=== PATIENT | male | born 1960 | race African-American/Black ===

== ENCOUNTER 2018-10-10 09:56 | Emergency (ER) | payer BC ==
--- OUTSIDE RECORDS SUMMARY | 2018-10-10 09:58 | XMS REPORT | Clinical Summary ---
:1960 Author Organization [facility] Address [address] [place] [address] Care Team Providers Name Role Phone Joanna Blank DO Primary Care Provider Allergies Active Allergy Reactions Severity Noted Date Comments No Known Drug Allergies 03/24/2016 Medications Medication Sig Dispensed Refills Start Date End Date Status carvedilol (COREG) Take 1 tablet 180 tablet 3 09/01/2017 Active 25 MG tablet (25 mg total) by mouth 2 (two) times a day with meals. aspirin (ECOTRIN) Take 1 tablet 90 tablet 3 09/01/2017 Active 81 MG enteric every day by coated tablet oral route. furosemide (LASIX) Take 1 tablet 90 tablet 3 08/31/2018 08/31/2019 Active 40 mg tablet (40 mg total) by mouth daily. lisinopril TAKE ONE 90 tablet 2 09/06/2018 Active (PRINIVIL,ZESTRIL) TABLET BY 5 mg tablet MOUTH DAILY lisinopril Take 1 tablet 90 tablet 3 09/01/2017 09/04/2018 Discontinued (PRINIVIL,ZESTRIL) (5 mg total) 5 mg tablet by mouth daily. furosemide (LASIX) Take 1 tablet 90 tablet 3 09/01/2017 08/31/2018 Discontinued 40 mg tablet (40 mg total) by mouth daily. Active Problems Problem Noted Date LBBB (left bundle branch block) 11/11/2016 Cardiomegaly 03/24/2016 Cardiomyopathy 03/24/2016 Hyperlipidemia 03/24/2016 Hypertension 03/24/2016 Sleep apnea 03/24/2016 Encounters Date Type Specialty Care Team Description 09/04/2018 Refill Cardiology Heron Franco, Med Refill 08/31/2018 Office Visit Cardiology Heron Franco, Cardiomyopathy, unspecified type (HCC) (Primary Dx); Essential hypertension 08/25/2018 Hospital Encounter Radiology Alcon Gonzales Right knee pain, unspecified chronicity; MD Kris Left knee pain, unspecified chronicity 08/25/2018 Transcribe Orders Radiology Alcon Gonzales Right knee pain, unspecified chronicity (Primary Dx); MD Kris Left knee pain, unspecified chronicity 03/02/2018 Office Visit Cardiology Heron Franco, LBBB (left bundle branch block) (Primary Dx); Dilated cardiomyopathy (HCC) 11/11/2017 Telephone Cardiology Clark Kennedy MA Results (Echo results) after 10/09/2017 Family History Relation Name Status Comments Father Mother Social History Tobacco Use Types Packs/Day Years Used Date Former Smoker Smokeless Tobacco: Former User Sex Assigned at Date Recorded Not on file Job Start Date Occupation Industry Not on file Not on file Not on file Travel History Travel Start Travel End No recent travel history available. Last Filed Vital Signs Vital Sign Reading Time Taken Blood Pressure 122/74 08/31/2018 8:52 AM CDT Pulse 77 08/31/2018 8:52 AM CDT Temperature - - Respiratory Rate - - Oxygen Saturation - - Inhaled Oxygen Concentration - - Weight 100 kg (221 lb) 08/31/2018 8:52 AM CDT Height 190.5 cm (6' 3") 08/31/2018 8:52 AM CDT Body Mass Index 27.62 08/31/2018 8:52 AM CDT Plan of Treatment Date Type Specialty Care Team Description 02/21/2019 Appointment Procedural Cardiology 03/01/2019 Office Visit Cardiology Heron Franco MD [address] [facility] [address] [place] [id number] Health Maintenance Due Date Last Done Comments COLON CANCER SCREENING 2009 SHINGLES VACCINES (#1) 2009 INFLUENZA VACCINE 12/30/2018 Procedures Procedure Name Priority Date/Time Associated Comments Diagnosis XR KNEE 4+ VW BILATERAL Routine 08/25/2018 11:30 Right knee pain, Results for this AM CDT unspecified procedure are in chronicity the results Left knee pain, section. unspecified chronicity ECHOCARDIOGRAM 2D Routine 10/30/2017 10:32 Abnormal ECG Results for this COMPLETE W MMODE AM CDT Cardiomyopathy, procedure are in SPECTRAL COLOR DOPPLER unspecified type the results (88300) section. after 10/09/2017 Results XR Knee 4+ Vw Bilateral (08/25/2018 11:30 AM CDT) Narrative Performed At EXAMINATION:XR KNEE 4VW BILATERAL [facility] CLINICAL HISTORY:M25.561 Pain in right knee, M25.562 Pain in left knee, m25.561 & m25.562 COMPARISON:None. FINDINGS: Or view examination of each knee performed. Severe medial and lateral joint space narrowing about the right knee. Bulky osteophytic changes about the right knee most marked medially. Severe degenerative changes at the proximal tibial fibular articulation on the right. Severe degenerative patellofemoral change on the right No fracture or dislocation on the right. No right-sided effusion Moderate joint space narrowing medial compartment left. Moderate osteophytic change about the lateral joint line on the left. Moderate patellofemoral joint space narrowing left. No fracture dislocation or effusion on the left IMPRESSION: Severe diffuse degenerative changes right knee. Moderate diffuse degenerative changes left knee No fracture or dislocation No effusion [id number] Procedure Note Hm Interface, Radiology Results Incoming - 08/25/2018 12:51 PM CDT EXAMINATION: XR KNEE 4 VW BILATERAL CLINICAL HISTORY: M25.561 Pain in right knee, M25.562 Pain in left knee, m25.561 & m25.562 COMPARISON: None. FINDINGS: Or view examination of each knee performed. Severe medial and lateral joint space narrowing about the right knee. Bulky osteophytic changes about the right knee most marked medially. Severe degenerative changes at the proximal tibial fibular articulation on the right. Severe degenerative patellofemoral change on the right No fracture or dislocation on the right. No right-sided effusion Moderate joint space narrowing medial compartment left. Moderate osteophytic change about the lateral joint line on the left. Moderate patellofemoral joint space narrowing left. No fracture dislocation or effusion on the left IMPRESSION: Severe diffuse degenerative changes right knee. Moderate diffuse degenerative changes left knee No fracture or dislocation No effusion [id number] Performing Organization Address City/State/Zipcode Phone Number [facility] [address] [place] [address] Echocardiogram complete w contrast and 3D if needed (10/30/2017 10:32 AM CDT) Narrative Performed At [facility] Echocardiography Report Pat.Name:ALPHONSO VILLAGOMEZ Pat.ID:[id number] .Date: 10/30/2017Refer.MD:HERON FRANCO MD Exam Time: 11:04:00 AM Study Type:Routine Echo Height:76inWeight: 223lb BSA: 2.32 m2 DOBAge:1960,57Y Sex: MALEBP:131/87 HR:80 bpm Sonogrphr: OG Khoury FASE Pat. Stat.:OutpatientRoom:[facility] Study Status:Final Echo Event ID:[id number] Order ID:[id number] Reason for Study:Cardiomyopathy with no status change -routine (>1yr) Procedures:2D Echo, Colorflow Doppler Race:C SUMMARY: LV size is severely enlarged. Suggestion of apical non-compaction. Estimated EF is 30-34%. LV filling pressure is elevated, mean PCWP is 15-20mmHg. Insufficient TR jet to estimate PA systolic pressure. FINDINGS: LV: LV size is severely enlarged. Suggestion of apical non-compaction.An LV tendon is seen. This is a normal variant.LV EF is moderately to severely depressed. Global hypokinesis.Estimated EF is 30-34%. RV: RV size is normal. RV systolic function is normal. LA: LA volume is moderately enlarged. RA: RA size is normal. AO: Aortic root diameter is upper limits of normal in size. LINUS: No pericardial effusion. AV: No structural AV abnormalities noted. MV: No structural MV abnormalities noted. A trace of mitral regurgitation. PV: No structural PV abnormalities noted. TV: No structural TV abnormalities noted. Hussein: LV relaxation is impaired. LV filling pressure is elevated, meanPCWP is 15-20mmHg. Other:Insufficient TR jet to estimate PA systolic pressure. MEASUREMENTS: 2D Parasternal [place] LVIDd6.9 cmIndex3 cm/m Ao An2.6 cm LVIDs5.4 cmAo Rtd 3.7 cm Index1.6 cm/m LV%fs 21.2 % LV Qoqx834.4 g(122-174) IVSd 1.1 cmRWT0.3 LVPWd1.1 cmLVOT 2.4 cm LA Ds4.7 cm LA Sng Plane LA Area 26.5 cm2(8.8-23.4) LA Vol97.3 ml Index42 ml/m LA LngAx 6.1 cm DOPPLER LVOT For Flow LVOT Area4.5 cm2 LVOT SV105.8 ml VPSQzuOaz231 cm/sHR78.5 bpm LVOTpkPG 8.3 mmHgLVOT CO8.3 l/min LVOTmnPG 4.2 mmHgLVOT CI3.6 l/m/m2 LVOT TVI23.4 cm lateral late Em5.9 cm/s lateral E/A Ratio late pkE86.1 cm/slate E/A 1.3 late pkA64.2 cm/s Signed 11/02/2017 03:22 PM Hua Anderson M.D. Procedure Note Interface, Radiology Results In - 11/02/2017 3:22 PM CDT [facility] Echocardiography Report Pat.Name: ALPHONSO VILLAGOMEZ Jimena.ID: [id number] St.Date: 10/30/2017 Refer.MD: HERON FRANCO MD Exam Time: 11:04:00 AM Study Type:Routine Echo Height: 76in Weight: 223lb BSA: 2.32 m2 Age: 9 1960,57Y Sex: MALE BP: 131/87 HR: 80 bpm Sonogrphr: OG Khoury FASE Pat. Stat.:Outpatient Room: [facility] Study Status:Final Echo Event ID:[id number] Order ID: [id number] Reason for Study:Cardiomyopathy with no status change -routine (>1yr) Procedures:2D Echo, Colorflow Doppler Race: C SUMMARY: LV size is severely enlarged. Suggestion of apical non-compaction. Estimated EF is 30-34%. LV filling pressure is elevated, mean PCWP is 15-20mmHg. Insufficient TR jet to estimate PA systolic pressure. FINDINGS: LV: LV size is severely enlarged. Suggestion of apical non-compaction. An LV tendon is seen. This is a normal variant. LV EF is moderately to severely depressed. Global hypokinesis. Estimated EF is 30-34%. RV: RV size is normal. RV systolic function is normal. LA: LA volume is moderately enlarged. RA: RA size is normal. AO: Aortic root diameter is upper limits of normal in size. LINUS: No pericardial effusion. AV: No structural AV abnormalities noted. MV: No structural MV abnormalities noted. A trace of mitral regurgitation. PV: No structural PV abnormalities noted. TV: No structural TV abnormalities noted. Hussein: LV relaxation is impaired. LV filling pressure is elevated, mean PCWP is 15-20mmHg. Other: Insufficient TR jet to estimate PA systolic pressure. MEASUREMENTS: 2D Parasternal [place] LVIDd 6.9 cm Index 3 cm/m Ao An 2.6 cm LVIDs 5.4 cm Ao Rtd 3.7 cm Index 1.6 cm/m LV%fs 21.2 % LV Mass 348.4 g (122-174) IVSd 1.1 cm RWT 0.3 LVPWd 1.1 cm LVOT 2.4 cm LA Ds 4.7 cm LA Sng Plane LA Area 26.5 cm2 (8.8-23.4) LA Vol 97.3 ml Index 42 ml/m LA LngAx 6.1 cm DOPPLER LVOT For Flow LVOT Area 4.5 cm2 LVOT SV 105.8 ml LVOTpkVel 144 cm/s HR 78.5 bpm LVOTpkPG 8.3 mmHg LVOT CO 8.3 l/min LVOTmnPG 4.2 mmHg LVOT CI 3.6 l/m/m2 LVOT TVI 23.4 cm lateral late Em 5.9 cm/s lateral E/A Ratio late pkE 86.1 cm/s late E/A 1.3 late pkA 64.2 cm/s Signed 11/02/2017 03:22 PM Hua Anderson M.D. Performing Organization Address City/State/[facility] Service Unitcode Phone Number [facility] [phone] [place] [address] after 10/09/2017 Insurance Payer Benefit Plan / Group Subscriber ID Type Phone Address BCBS BCBS CHOICE PPO/FEDERAL EMPL PPO xxxxxxxxxxxx PPO Advance Directives Patient has advance care planning documents on file. For more information, please contact:[facility] [place] [address]
--- OUTSIDE RECORDS SUMMARY | 2018-10-10 10:00 | XMS REPORT | Continuity of Care Document ---
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 Dilated 11/12/2017 [facility] cardiomyopathy 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/12/2017 [facility] plasma-protein metabolism, not elsewhere classified Hypertensive heart 11/12/2017 [facility] disease with heart failure 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 Obesity, 11/12/2017 [facility] unspecified Left bundle-branch 11/12/2017 [facility] block, unspecified Body mass index 11/12/2017 [facility] 29.0-29.9, adult HEART FAILURE, Active [facility] UNSPECIFIED [place] UNSPECIFIED ATRIAL Active [facility] FIB[facility] [place] Medications Medication Details Route Status Patient Ordering Order Source Instructions Provider Date carvedilol 25 25 mg=1 tab, PO, Active mg oral Q12H, # 60 tab, 0 2017 [place] tablet Refill(s) Aspirin 81 MG 81 mg=1 tab, PO, Active Enteric Daily, 0 2017 [place] Coated Tablet Refill(s) rivaroxaban 20 mg=1 tab, PO, Active 20 mg oral QPM, # 30 tab, 0 2017 [place] tablet Refill(s) lisinopril 5 5 mg=1 tab, PO, Active mg oral Bedtime, # 30 2018 [place] tablet tab, 0 Refill(s) Furosemide 40 40 mg=1 tab, PO, Active MG Oral BID, # 60 tab, 0 2017 [place] Tablet Refill(s) [Lasix] Lisinopril 2.5 mg, 0.5 tab, No Longer Route: PO, Drug Active 2017 [place] form: TAB, Bedtime, Dosing Weight 106.818, kg, Priority: Routine, Start date: 08/05/17 21:00:00 [employer], Duration: 30 day, Stop date: 09/03/17 21:00:00 CDTNotes: (Same as: Prinivil, Zestril) Xarelto 20 mg, 2 tab, No Longer Route: PO, Drug Active 2017 [place] form: TAB, QPM, Dosing Weight 106.818, kg, Priority: Routine, Start date: 08/05/17 17:00:00 [employer], Duration: 30 day, Stop date: 09/03/17 17:00:00 CDTNotes: (Same as: Xarelto) Do Not Crush Coreg 25 mg, 2 tab, No Longer Route: PO, Drug Active 2017 [place] form: TAB, Q12H, Dosing Weight 106.818, kg, Priority: Routine, Start date: 08/05/17 9:00:00 [employer], Duration: 30 day, Stop date: 09/03/17 21:00:00 CDTNotes: Give with food. (Same As: Coreg) Lovenox 100 mg, 1 mL, Inactive Route: SUB-Q, 2017 [place] Drug form: INJ, ONCE, Dosing Weight 106.818, kg, Priority: STAT, Start date: 08/04/17 9:47:00 [employer], Stop date: 08/04/17 9:47:00 CSTNotes: Nurse to ensure documentation of patient education per anticoagulation policy. (Same as: Lovenox) Aspirin 81 MG 81 mg, 1 tab, No Longer Enteric Route: PO, Drug Active 2017 [place] Coated Tablet form: ECTAB, Daily, Dosing Weight 106.818, kg, Start date: 08/04/17 9:00:00 [employer], Duration: 30 day, Stop date: 09/02/17 9:00:00 CDTNotes: Do not crush or chew. (Same As: Ecotrin) Coreg 12.5 mg, 1 tab, No Longer Route: PO, Drug Active 2017 [place] form: TAB, Q12H, Dosing Weight 106.818, kg, Priority: Routine, Start date: 08/04/17 9:00:00 [employer], Duration: 30 day, Stop date: 09/02/17 21:00:00 CDTNotes: Give with food. (Same As: Coreg) Lasix 40 mg, 4 mL, No Longer Route: IVP, Drug Active 2017 [place] form: INJ, BID Diuretic, Dosing Weight 106.818, kg, Priority: Routine, Start date: 08/04/17 8:00:00 [employer], Duration: 30 day, Stop date: 09/02/17 16:00:00 CDTNotes: (Same as: Lasix) MEDICATION WASTE Product Size: 40 mg Product Wasted: ___ mg Hydralazine 10 mg, 0.5 mL, No Longer Route: IV, Drug Active 2017 [place] form: INJ, Q4H, Dosing Weight 106.818, kg, PRN Hypertension, Priority: Routine, Start date: 08/03/17 18:49:00 [employer], Duration: 30 day, Stop date: 09/02/17 18:48:00 CDTNotes: (Same as: Apresoline) Push over 5 minutes Coreg 6.25 mg, 2 tab, No Longer Route: PO, Drug Active 2017 [place] form: TAB, Q12H, Dosing Weight 106.818, kg, Priority: STAT, Start date: 08/03/17 18:43:00 [employer], Duration: 30 day, Stop date: 09/02/17 9:00:00 CDTNotes: Give with food. (Same As: Coreg) Magnesium 1 gm, 100 mL, Inactive Sulfate Route: IVPB, Drug 2017 [place] form: INJ, ONCE, Dosing Weight 106.818, kg, Start date: 08/03/17 16:29:00 [employer], Stop date: 08/03/17 16:29:00 CSTNotes: WASTE: F/P - Sink; E - [employer] Lasix 80 mg, 8 mL, Inactive Route: IVP, Drug 2017 [place] form: INJ, ONCE, kg, Start date: 08/03/17 15:56:00 [employer], Stop date: 08/03/17 15:56:00 CSTNotes: (Same as: Lasix) MEDICATION WASTE Product Size: 40 mg Product Wasted: ___ mg Aspirin 0 Refill(s) No Longer Active 2018 [place] metoprolol 50 mg=1 tab, PO, No Longer tartrate 50 BID, # 60 tab, 0 Active 2017 [place] mg oral Refill(s) tablet Lasix 40 mg, Route: Inactive IVP, Drug form: 2018 [place] INJ, ONCE, kg, Start date: 08/03/17 15:51:00 [employer], Stop date: 08/03/17 15:51:00 [employer] Allergies, Adverse Reactions, Alerts Substance Category Reaction Severity Reaction Status Date Comments Source type Reported Immunizations Immunization Date Given Site Status Last Updated Comments Source Results Order Name Results Value Reference Date Interpretation Comments Source Range CHEM PANEL eGFR 72 08/06 Result Comment: The eGFR is calculated using the CKD-EPI formula. In most young, healthy individuals the eGFR will be >90 mL/ min/1.73m2. The eGFR declines with age. An eGFR of 60-89 may be normal in MH mL/min some populations, particularly the elderly, for whom the CKD-EPI formula has not been extensively validated. Use of the eGFR is not recommended in the following populations: [place] /1.73m 2 Individuals with unstable creatinine concentrations, including patients and those with serious co-morbid conditions. Patients with extremes in muscle mass or diet. The data above are obtained from the National Kidney Disease Education Program (NKDEP) which additionally recommends that when the eGFR is used in patients with extremes of body mass index for purposes of drug dosing, the eGFR should be multiplied by the estimated BMI. CHEM PANEL Calcium Lvl 8.5 8.5 - 10.5 08/06 MH mg/dL /2017 [place] CHEM PANEL CO2 27 24 - 32 08/06 MH meq/L [place] CHEM PANEL Sodium Lvl 138 135 - 145 / MH meq/L [place] CHEM PANEL Potassium Lvl 4.0 3.5 - 5.1 08/06 MH meq/L [place] CHEM PANEL Chloride Lvl 104 95 - 109 08/06 MH meq/L [place] CHEM PANEL Creatinine 1.12 0.50 - 08/06 MH Lvl mg/dL 1.40 /2017 [place] CHEM PANEL BUN 23 7 - 22 03/08 MH mg/dL /2017 [place] CHEM PANEL Glucose Lvl 116 70 - 99 03/08 MH mg/dL /2017 [place] CHEM PANEL AGAP 11.0 10.0 - 03/08 MH meq/L 20.0 [place] HEMATOLOGY Lymphocytes 17.4 % 20.0 - 03/08 MH 40.0 [place] HEMATOLOGY Monocytes 8.6 % 2.0 - 12.0 03/08 MH /2017 [place] HEMATOLOGY Segs 71.4 % 45.0 - 03/08 MH 75.0 /2017 [place] HEMATOLOGY Basophils 0.4 % 0.0 - 1.0 03/08 MH /2017 [place] HEMATOLOGY Eosinophils 2.2 % 0.0 - 4.0 03/08 MH [place] HEMATOLOGY Monocytes # 0.7 0.0 - 0.8 03/08 MH K/CMM [place] HEMATOLOGY Segs-Bands # 5.5 1.5 - 8.1 03/08 MH K/CMM [place] HEMATOLOGY Lymphocytes # 1.3 1.0 - 5.5 03/08 MH K/CMM [place] HEMATOLOGY Eosinophils # 0.2 0.0 - 0.5 03/08 MH K/CMM [place] HEMATOLOGY MPV 10.0 7.4 - 10.4 03/08 MH fL [place] HEMATOLOGY WBC 7.6 3.7 - 10.4 03/08 MH K/CMM [place] HEMATOLOGY MCV 87.1 80.0 - 03/08 MH fL 94.0 [place] HEMATOLOGY MCHC 32.4 32.0 - 03/08 MH g/dL 36.0 [place] HEMATOLOGY MCH 28.2 27.0 - 03/08 MH pg 31.0 [place] HEMATOLOGY RBC 5.40 4.70 - 03/08 MH M/CMM 6.10 [place] HEMATOLOGY Hct 47.1 % 42.0 - 03/08 MH 54.0 [place] HEMATOLOGY Hgb 15.2 14.0 - 03/08 MH g/dL 18.0 [place] HEMATOLOGY Platelet 256 133 - 450 03/08 MH K/CMM [place] HEMATOLOGY RDW 14.0 % 11.5 - 03/08 MH 14.5 [place] HEMATOLOGY PT 15.2 s 12.0 - 03/07 MH 14.7 /2018 [place] HEMATOLOGY INR 1.19 0.85 - 03/07 MH 1.17 /2018 [place] HEMATOLOGY PTT 30.5 s 22.9 - 03/07 MH 35.8 /2017 [place] CHEM PANEL Magnesium Lvl 1.9 1.8 - 2.4 /07 MH mg/dL [place] CHEM PANEL Phosphorus 4.2 2.5 - 4.5 / MH mg/dL [place] CHEM PANEL eGFR 74 08/05 Result Comment: The eGFR is calculated using the CKD-EPI formula. In most young, healthy individuals the eGFR will be >90 mL/ min/1.73m2. The eGFR declines with age. An eGFR of 60-89 may be normal in MH mL/min /2018 some populations, particularly the elderly, for whom the CKD-EPI formula has not been extensively validated. Use of the eGFR is not recommended in the following populations: [place] /1.73m 2 Individuals with unstable creatinine concentrations, including patients and those with serious co-morbid conditions. Patients with extremes in muscle mass or diet. The data above are obtained from the National Kidney Disease Education Program (NKDEP) which additionally recommends that when the eGFR is used in patients with extremes of body mass index for purposes of drug dosing, the eGFR should be multiplied by the estimated BMI. CHEM PANEL Bili Total 0.6 0.2 - 1.3 03/07 [facility] mg/dL /2017 [place] CHEM PANEL Alk Phos 75 39 - 136 03/07 MH unit/L /2017 [place] CHEM PANEL AST 27 0 - 37 03/07 MH unit/L [place] CHEM PANEL ALT 115 0 - 65 03/07 MH unit/L [place] CHEM PANEL Creatinine 1.09 0.50 - 03/07 MH Lvl mg/dL 1.40 /2017 [place] CHEM PANEL Sodium Lvl 144 135 - 145 03/07 MH meq/L [place] CHEM PANEL Albumin Lvl 3.1 3.5 - 5.0 03/07 MH g/dL [place] CHEM PANEL CO2 27 24 - 32 03/07 MH meq/L [place] CHEM PANEL Calcium Lvl 8.8 8.5 - 10.5 03/07 MH mg/dL [place] CHEM PANEL Chloride Lvl 108 95 - 109 03/07 MH meq/L /2017 [place] CHEM PANEL Potassium Lvl 3.8 3.5 - 5.1 / MH meq/L [place] CHEM PANEL BUN 20 7 - 22 /07 MH mg/dL [place] CHEM PANEL Glucose Lvl 105 70 - 99 / MH mg/dL [place] CHEM PANEL Total Protein 6.6 6.4 - 8.4 / MH g/dL [place] CHEM PANEL A/G Ratio 0.9 0.7 - 1.6 / MH [place] CHEM PANEL AGAP 12.8 10.0 - 03/07 MH meq/L 20.0 [place] CHEM PANEL Globulin 3.5 2.7 - 4.2 /07 MH g/dL [place] CHEM PANEL B/C Ratio 18 6 - 25 / MH [place] HEMATOLOGY Eosinophils # 0.2 0.0 - 0.5 /07 MH K/CMM [place] HEMATOLOGY Lymphocytes # 1.5 1.0 - 5.5 /07 MH K/CMM [place] HEMATOLOGY Segs-Bands # 5.0 1.5 - 8.1 /07 MH K/CMM [place] HEMATOLOGY Monocytes # 0.6 0.0 - 0.8 /07 MH K/CMM [place] HEMATOLOGY Monocytes 7.7 % 2.0 - 12.0 /07 MH [place] HEMATOLOGY Eosinophils 2.3 % 0.0 - 4.0 /07 MH [place] HEMATOLOGY Basophils 0.4 % 0.0 - 1.0 08/05 MH [place] HEMATOLOGY Segs 68.9 % 45.0 - 03/07 MH 75.0 [place] HEMATOLOGY Lymphocytes 20.7 % 20.0 - 03/07 MH 40.0 [place] HEMATOLOGY RDW 14.0 % 11.5 - 03/07 MH 14.5 [place] HEMATOLOGY MPV 10.1 7.4 - 10.4 /07 MH fL [place] HEMATOLOGY Platelet 232 133 - 450 08/05 MH K/CMM [place] HEMATOLOGY MCH 28.4 27.0 - 03/07 MH pg 31.0 [place] HEMATOLOGY MCV 86.8 80.0 - 03/07 MH fL 94.0 [place] HEMATOLOGY MCHC 32.7 32.0 - 03/07 MH g/dL 36.0 [place] HEMATOLOGY WBC 7.3 3.7 - 10.4 / MH K/CMM /2017 [place] HEMATOLOGY RBC 5.30 4.70 - 03/07 MH M/CMM 6.10 [place] HEMATOLOGY Hct 46.0 % 42.0 - 03/ MH 54.0 [place] HEMATOLOGY Hgb 15.0 14.0 - 03/07 MH g/dL 18.0 [place] CHEM PANEL Magnesium Lvl 2.0 1.8 - 2.4 / MH mg/dL [place] ELECTROLYTES Potassium Lvl 4.0 3.5 - 5.1 / MH meq/L [place] ELECTROLYTES Chloride Lvl 106 95 - 109 / MH meq/L [place] ELECTROLYTES CO2 29 24 - 32 / MH meq/L [place] ELECTROLYTES Sodium Lvl 143 135 - 145 / MH meq/L [place] ELECTROLYTES BUN 25 7 - 22 / MH mg/dL [place] ELECTROLYTES Creatinine 1.10 0.50 - 03 MH Lvl mg/dL 1.40 [place] ELECTROLYTES Glucose Lvl 82 70 - 99 / MH mg/dL [place] ELECTROLYTES eGFR 74 08/05 Result Comment: The eGFR is calculated using the CKD-EPI formula. In most young, healthy individuals the eGFR will be > 90 mL/min/1.73m2. The eGFR declines with age. An eGFR of 60-89 may be normal in [place] mL/min /2018 some populations, particularly the elderly, for whom the CKD-EPI formula has not been extensively validated. Use of the eGFR is not recommended in the following populations: [place] /1.73m 2 Individuals with unstable creatinine concentrations, including patients and those with serious co-morbid conditions. Patients with extremes in muscle mass or diet. The data above are obtained from the National Kidney Disease Education Program (NKDEP) which additionally recommends that when the eGFR is used in patients with extremes of body mass index for purposes of drug dosing, the eGFR should be multiplied by the estimated BMI. ELECTROLYTES Calcium Lvl 8.6 8.5 - 10.5 /07 MH mg/dL [place] ELECTROLYTES AGAP 12.0 10.0 - 03/07 [facility] meq/L 20.0 /2017 [place] CHEM PANEL Phosphorus 3.7 2.5 - 4.5 03/06 MH mg/dL /2017 [place] CHEM PANEL B/C Ratio 21 6 - 25 03/06 MH [place] CHEM PANEL Globulin 3.3 2.7 - 4.2 03/06 MH g/dL /2017 [place] CHEM PANEL A/G Ratio 0.9 0.7 - 1.6 03/06 MH [place] CHEM PANEL Alk Phos 75 39 - 136 03/06 MH unit/L /2017 [place] CHEM PANEL Bili Total 0.5 0.2 - 1.3 03/06 MH mg/dL /2017 [place] CHEM PANEL AST 31 0 - 37 03/06 MH unit/L [place] CHEM PANEL Albumin Lvl 2.9 3.5 - 5.0 03/06 MH g/dL [place] CHEM PANEL ALT 142 0 - 65 03/06 MH unit/L [place] CHEM PANEL Total Protein 6.2 6.4 - 8.4 03/06 MH g/dL [place] CHEM PANEL Magnesium Lvl 2.1 1.8 - 2.4 03/06 MH mg/dL [place] HEMATOLOGY MCV 87.4 80.0 - 03/06 MH fL 94.0 [place] HEMATOLOGY MCH 28.4 27.0 - 03/06 MH pg 31.0 [place] HEMATOLOGY MCHC 32.6 32.0 - 03/06 MH g/dL 36.0 [place] HEMATOLOGY Platelet 208 133 - 450 03/06 MH K/CMM [place] HEMATOLOGY RDW 13.8 % 11.5 - 03/06 MH 14.5 [place] HEMATOLOGY MPV 9.9 fL 7.4 - 10.4 03/06 MH [place] HEMATOLOGY WBC 7.7 3.7 - 10.4 03/06 MH K/CMM [place] HEMATOLOGY RBC 5.04 4.70 - 03/06 MH M/CMM 6.10 [place] HEMATOLOGY Hgb 14.3 14.0 - 03/06 MH g/dL 18.0 [place] HEMATOLOGY Hct 44.0 % 42.0 - 03/06 MH 54.0 [place] HEMATOLOGY Segs 73.2 % 45.0 - 03/06 MH 75.0 [place] HEMATOLOGY Segs-Bands # 5.6 1.5 - 8.1 03/06 MH K/CMM [place] HEMATOLOGY Monocytes # 0.6 0.0 - 0.8 03/ MH K/CMM [place] HEMATOLOGY Basophils 0.5 % 0.0 - 1.0 / MH [place] HEMATOLOGY Lymphocytes # 1.3 1.0 - 5.5 / MH K/CMM [place] HEMATOLOGY Eosinophils # 0.1 0.0 - 0.5 / MH K/CMM [place] HEMATOLOGY Lymphocytes 17.5 % 20.0 - 03/06 MH 40.0 /2017 [place] HEMATOLOGY Monocytes 7.3 % 2.0 - 12.0 08/04 MH [place] HEMATOLOGY Eosinophils 1.5 % 0.0 - 4.0 08/04 MH [place] CARDIAC CK MB Index 2.6 0.0 - 2.5 06 MH ENZYMES /2017 [place] CARDIAC CK MB 2.5 0.5 - 3.6 08/04 MH [facility]ZYM[facility] ng/mL [place] CARDIAC Troponin-I 0.15 0.00 - 03/06 MH [facility] ng/mL 0.40 /2017 [place] CARDIAC Total CK 95 12 - 191 /06 MH [facility] unit/L [place] CARDIAC proBNP 2465 0 - 125 /05 [facility] pg/mL /2017 [place] CHEM PANEL A/G Ratio 0.9 0.7 - 1.6 /05 MH /2017 [place] CHEM PANEL Alk Phos 86 39 - 136 03/05 MH unit/L [place] CHEM PANEL AST 53 0 - 37 03/05 MH unit/L [place] CHEM PANEL ALT 201 0 - 65 03/05 MH unit/L [place] CHEM PANEL Albumin Lvl 3.6 3.5 - 5.0 03/05 MH g/dL [place] CHEM PANEL Globulin 3.8 2.7 - 4.2 03/05 MH g/dL [place] CHEM PANEL Bili Total 0.4 0.2 - 1.3 03/05 MH mg/dL [place] CHEM PANEL B/C Ratio 20 6 - 25 03/05 MH [place] CHEM PANEL Total Protein 7.4 6.4 - 8.4 03/05 MH g/dL [place] CARDIAC CK MB Index 2.8 0.0 - 2.5 08/03 [facility] /2017 [place] CARDIAC CK MB 2.1 0.5 - 3.6 08/03 [facility] ng/mL /2017 [place] CARDIAC Troponin-I 0.13 0.00 - 03 [facility] ng/mL 0.40 /2017 [place] CARDIAC Total CK 76 12 - 191 08/03 [facility] unit/L /2017 [place] Vital Signs Vital Sign Value Date Comments Source Systolic (mm Hg) 117 08/06/2017 [facility] Diastolic (mm Hg) 81 08/06/2017 [facility] Respitory Rate 18 08/06/2017 [facility] Temperature Oral (F) 98.3 F 08/06/2017 [facility] Heart Rate 81 08/06/2017 [facility] Heart Rate 93 08/06/2017 [facility] Temperature Oral (F) 98.5 F 08/06/2017 [facility] Respitory Rate 18 08/06/2017 [facility] Systolic (mm Hg) 109 08/06/2017 [facility] Diastolic (mm Hg) 71 08/06/2017 [facility] Respitory Rate 18 08/06/2017 [facility] Systolic (mm Hg) 109 08/06/2017 [facility] Diastolic (mm Hg) 82 08/06/2017 [facility] Temperature Oral (F) 97.8 F 08/06/2017 [facility] Heart Rate 95 08/06/2017 [facility] Weight 106.818 08/03/2017 [facility] Height 190.5 cm 08/03/2017 [facility] BMI Calculated 29.43 08/03/2017 [facility] Encounters Location Location Encounter Encounter Reason Attending ADM DC Status Source Details Type Number For Provider Date [facility] [id number] [place] 08/03 08/06 [place] /2017 [facility] Procedures Procedure Code Date Perfomer Comments Source Laparoscopic [id number] [facility] repair of hernia
--- OUTSIDE RECORDS SUMMARY | 2018-10-10 10:01 | XMS REPORT | Summary of Care ---
:1960 Author Organization [facility] Address [id number] [place] [id number] Encounter HQ Haroonr_dov(FIN) [id number] Date(s): 08/03/17 - 08/06/[address] [phone] Encounter Diagnosis Heart failure, unspecified (Final) - Heart failure, unspecified (Final) - Paroxysmal atrial fibrillation (Final) - 08/12/17 Acute combined systolic (congestive) and diastolic (congestive) heart failure ( Final) - Dilated cardiomyopathy (Final) - Other disorders of plasma-protein metabolism, not elsewhere classified (Final) - Hypertensive heart disease with heart failure (Final) - Atherosclerotic heart disease of [place] coronary artery without angina pectoris (Final) - Obesity, unspecified (Final) - Left bundle-branch block, unspecified (Final) - Body mass index (BMI) 29.0-29.9, adult (Final) - Discharge Disposition: Home or Self Care Attending Physician: Geo Edward MD Admitting Physician: Geo Edward MD Referring Physician: Mukesh Ellington MD Vital Signs Most recent to oldest [Reference 1 2 3 Range]: Height 190.5 cm (08/03/17 3:56 PM) Temperature Oral [96.4-99.1 DegF] 98.3 DegF 98.5 DegF 97.8 DegF (08/06/17 9:14 AM) (08/06/17 3:55 AM) (08/05/17 11:59 PM) Blood Pressure [90-140/60-90 117/81 mmHg 109/71 mmHg 109/82 mmHg mmHg] (08/06/17 9:14 AM) (08/06/17 3:55 AM) (08/05/17 11:59 PM) Respiratory Rate [14-20 BRMIN] 18 BRMIN 18 BRMIN 18 BRMIN (08/06/17 9:14 AM) (08/06/17 3:55 AM) (08/05/17 11:59 PM) Peripheral Pulse Rate [60-100 81 bpm 93 bpm 95 bpm bpm] (08/06/17 9:14 AM) (08/06/17 3:55 AM) (08/05/17 11:59 PM) Weight 106.818 kg (08/03/17 3:56 PM) Body Mass Index 29.43 m2 (08/03/17 3:56 PM) Problem List No data available for this section Allergies, Adverse Reactions, Alerts Substance Reaction Severity Status NKDA Active Medications aspirin 0 Refill(s) Start Date: 08/03/17 Stop Date: 08/06/17 Status: Discontinuedaspirin 81 mg tablet, enteric coated 81 mg, 1 tab, Route: PO, Drug form: ECTAB, Daily, Dosing Weight 106.818, kg, Start date: 08/04/17 9:00:00 RISK MODELER, Duration: 30 day, Stop date: 09/02/17 9:00:00 CDT Notes: Do not crush or chew.(Same As: Ecotrin) Start Date: 08/04/17 Stop Date: 08/06/17 Status: Discontinuedaspirin 81 mg tablet, enteric coated 81 mg=1 tab, PO, Daily, 0 Refill(s) Start Date: 08/06/17 Status: Orderedcarvedilol 25 mg oral tablet 25 mg=1 tab, PO, Q12H, # 60 tab, 0 Refill(s) Start Date: 08/06/17 Stop Date: 09/05/17 Status: OrderedCoreg 6.25 mg, 2 tab, Route: PO, Drug form: TAB, Q12H, Dosing Weight 106.818, kg, Priority: STAT, Start date: 08/03/17 18:43:00 RISK MODELER, Duration: 30 day, Stop date: 09/02/17 9:00:00 CDT Notes: Give with food. (Same As: Coreg) Start Date: 08/03/17 Stop Date: 08/04/17 Status: DiscontinuedCoreg 25 mg, 2 tab, Route: PO, Drug form: TAB, Q12H, Dosing Weight 106.818, kg, Priority: Routine, Start date: 08/05/17 9:00:00 RISK MODELER, Duration: 30 day, Stop date : 09/03/17 21:00:00 CDT Notes: Give with food. (Same As: Coreg) Start Date: 08/05/17 Stop Date: 08/06/17 Status: DiscontinuedCoreg 12.5 mg, 1 tab, Route: PO, Drug form: TAB, Q12H, Dosing Weight 106.818, kg, Priority: Routine, Startdate: 08/04/17 9:00:00 RISK MODELER, Duration: 30 day, Stop date : 09/02/17 21:00:00 CDT Notes: Give with food. (Same As: Coreg) Start Date: 08/04/17 Stop Date: 08/05/17 Status: DiscontinuedhydrALAZINE 10 mg, 0.5 mL, Route: IV, Drug form: INJ, Q4H, Dosing Weight 106.818, kg, PRN Hypertension, Priority: Routine, Start date: 08/03/17 18:49:00 RISK MODELER, Duration: 30 day, Stop date: 09/02/17 18:48:00 CDT Notes: (Same as: Apresoline)Push over 5 minutes Start Date: 08/03/17 Stop Date: 08/06/17 Status: DiscontinuedLasix 40 mg, Route: IVP, Drug form: INJ, ONCE, kg, Start date: 08/03/17 15:51:00 RISK MODELER, Stop date: 08/03/17 15:51:00 RISK MODELER Start Date: 08/03/17 Stop Date: 08/03/17 Status: DiscontinuedLasix 40 mg, 4 mL, Route: IVP, Drug form: INJ, BID Diuretic, Dosing Weight 106.818, kg , Priority: Routine,Start date: 08/04/17 8:00:00 RISK MODELER, Duration: 30 day, Stop date: 09/02/17 16:00:00 CDT Notes: (Same as: Lasix) MEDICATION WASTE Product Size: 40 mgProduct Wasted: ___ mg Start Date: 08/04/17 Stop Date: 08/06/17 Status: DiscontinuedLasix 80 mg, 8 mL, Route: IVP, Drug form: INJ, ONCE, kg, Start date: 08/03/17 15:56: 00 RISK MODELER, Stop date: 08/03/17 15:56:00 RISK MODELER Notes: (Same as: Lasix) MEDICATION WASTE Product Size: 40 mgProduct Wasted: ___ mg Start Date: 08/03/17 Stop Date: 08/03/17 Status: CompletedLasix 40 mg oral tablet 40 mg=1 tab, PO, BID, # 60 tab, 0 Refill(s) Start Date: 08/06/17 Stop Date: 09/05/17 Status: Orderedlisinopril 2.5 mg, 0.5 tab, Route: PO, Drug form: TAB, Bedtime, Dosing Weight 106.818, kg, Priority: Routine, Start date: 08/05/17 21:00:00 RISK MODELER, Duration: 30 day, Stop date: 09/03/17 21:00:00 CDT Notes: (Same as: Wicho Stevensonrijudit) Start Date: 08/05/17 Stop Date: 08/06/17 Status: Discontinuedlisinopril 5 mg oral tablet 5 mg=1 tab, PO, Bedtime, # 30 tab, 0 Refill(s) Start Date: 08/06/17 Stop Date: 09/05/17 Status: OrderedLovenox 100 mg, 1 mL, Route: SUB-Q, Drug form: INJ, ONCE, Dosing Weight 106.818, kg, Priority: STAT, Start date: 08/04/17 9:47:00 RISK MODELER, Stop date: 08/04/17 9:47:00 RISK MODELER Notes: Nurse to ensure documentation of patient education per anticoagulation policy.(Same as: Lovenox) Start Date: 08/04/17 Stop Date: 08/04/17 Status: Completedmagnesium sulfate 1 gm, 100 mL, Route: IVPB, Drug form: INJ, ONCE, Dosing Weight 106.818, kg, Start date: 08/03/17 16:29:00 RISK MODELER, Stop date: 08/03/17 16:29:00 RISK MODELER Notes: WASTE: F/P - Sink; E - Municipal Trash Bin Start Date: 08/03/17 Stop Date: 08/03/17 Status: Discontinuedmetoprolol tartrate 50 mg oral tablet 50 mg=1 tab, PO, BID, # 60 tab, 0 Refill(s) Start Date: 08/03/17 Stop Date: 08/06/17 Status: Discontinuedrivaroxaban 20 mg oral tablet 20 mg=1 tab, PO, QPM, # 30 tab, 0 Refill(s) Start Date: 08/06/17 Stop Date: 09/05/17 Status: OrderedXarelto 20 mg, 2 tab, Route: PO, Drug form: TAB, QPM, Dosing Weight 106.818, kg, Priority: Routine, Start date: 08/05/17 17:00:00 RISK MODELER, Duration: 30 day, Stop date: 09/03/17 17:00:00 CDT Notes: (Same as: Xarelto)Do Not Crush Start Date: 08/05/17 Stop Date: 08/06/17 Status: Discontinued Results ELECTROLYTES Most recent to oldest 1 2 3 [Reference Range]: Sodium Lvl [135-145 mEq/L] 138 mEq/L 144 mEq/L 143 mEq/L (08/06/17 4:44 AM) (08/05/17 4:28 AM) (08/04/17 9:17 PM) Potassium Lvl [3.5-5.1 mEq/L] 4.0 mEq/L 3.8 mEq/L 4.0 mEq/L (08/06/17 4:44 AM) (08/05/17 4:28 AM) (08/04/17 9:17 PM) Chloride Lvl [95-109 mEq/L] 104 mEq/L 108 mEq/L 106 mEq/L (08/06/17 4:44 AM) (08/05/17 4:28 AM) (08/04/17 9:17 PM) CO2 [24-32 mEq/L] 27 mEq/L 27 mEq/L 29 mEq/L (08/06/17 4:44 AM) (08/05/17 4:28 AM) (08/04/17 9:17 PM) AGAP [10.0-20.0 mEq/L] 11.0 mEq/L 12.8 mEq/L 12.0 mEq/L (08/06/17 4:44 AM) (08/05/17 4:28 AM) (08/04/17 9:17 PM) CHEM PANEL Most recent to oldest 1 2 3 [Reference Range]: Creatinine Lvl [0.50-1.40 1.12 mg/dL 1.09 mg/dL 1.10 mg/dL mg/dL] (08/06/17 4:44 AM) (08/05/17 4:28 AM) (08/04/17 9:17 PM) eGFR 72 mL/min/1.73m2 1 74 mL/min/1.73m2 2 74 mL/min/1.73m2 3 *NA* *NA* *NA* (08/06/17 4:44 AM) (08/05/17 4:28 AM) (08/04/17 9:17 PM) BUN [7-22 mg/dL] 23 mg/dL 20 mg/dL 25 mg/dL *HI* (08/05/17 4:28 AM) *HI* (08/06/17 4:44 AM) (08/04/17 9:17 PM) B/C Ratio [6-25] 18 21 20 (08/05/17 4:28 AM) (08/04/17 4:56 AM) (08/03/17 4:14 PM) Glucose Lvl [70-99 mg/dL] 116 mg/dL 105 mg/dL 82 mg/dL *HI* *HI* (08/04/17 9:17 PM) (08/06/17 4:44 AM) (08/05/17 4:28 AM) Total Protein [6.4-8.4 g/dL] 6.6 g/dL 6.2 g/dL 7.4 g/dL (08/05/17 4:28 AM) *LOW* (08/03/17 4:14 PM) (08/04/17 4:56 AM) Albumin Lvl [3.5-5.0 g/dL] 3.1 g/dL 2.9 g/dL 3.6 g/dL *LOW* *LOW* (08/03/17 4:14 PM) (08/05/17 4:28 AM) (08/04/17 4:56 AM) Globulin [2.7-4.2 g/dL] 3.5 g/dL 3.3 g/dL 3.8 g/dL (08/05/17 4:28 AM) (08/04/17 4:56 AM) (08/03/17 4:14 PM) A/G Ratio [0.7-1.6] 0.9 0.9 0.9 (08/05/17 4:28 AM) (08/04/17 4:56 AM) (08/03/17 4:14 PM) Calcium Lvl [8.5-10.5 mg/dL] 8.5 mg/dL 8.8 mg/dL 8.6 mg/dL (08/06/17 4:44 AM) (08/05/17 4:28 AM) (08/04/17 9:17 PM) Phosphorus [2.5-4.5 mg/dL] 4.2 mg/dL 3.7 mg/dL (08/05/17 4:28 AM) (08/04/17 4:56 AM) Magnesium Lvl [1.8-2.4 1.9 mg/dL 2.0 mg/dL 2.1 mg/dL mg/dL] (08/05/17 4:28 AM) (08/04/17 9:17 PM) (08/04/17 4:56 AM) ALT [0-65 unit/L] 115 unit/L 142 unit/L 201 unit/L *HI* *HI* *HI* (08/05/17 4:28 AM) (08/04/17 4:56 AM) (08/03/17 4:14 PM) AST [0-37 unit/L] 27 unit/L 31 unit/L 53 unit/L (08/05/17 4:28 AM) (08/04/17 4:56 AM) *HI* (08/03/17 4:14 PM) Alk Phos [39-136 unit/L] 75 unit/L 75 unit/L 86 unit/L (08/05/17 4:28 AM) (08/04/17 4:56 AM) (08/03/17 4:14 PM) Bili Total [0.2-1.3 mg/dL] 0.6 mg/dL 0.5 mg/dL 0.4 mg/dL (08/05/17 4:28 AM) (08/04/17 4:56 AM) (08/03/17 4:14 PM) 1Result Comment: The eGFR is calculated using the CKD-EPI formula. In most young , healthy individualsthe eGFR will be >90 mL/min/1.73m2. The eGFR declines with age. An eGFR of 60-89 may be normal insome populations, particularly the elderly, for whom the CKD-EPI formula has not been extensively validated. Use of the eGFR is not recommended in the following populations: Individuals with unstable creatinine concentrations, including patients and those with serious co-morbid conditions. Patients with extremes in muscle mass or diet. The data above are obtained from the National Kidney Disease Education Program ( NKDEP) which additionally recommends that when the eGFR is used in patients with extremes of body mass index for purposesof drug dosing, the eGFR should be multiplied by the estimated BMI.2Result Comment: The eGFR is calculated using the CKD-EPI formula. In most young, healthy individualsthe eGFR will be >90 mL/min/1.73m2. The eGFR declines with age. An eGFR of 60-89 may be normal insome populations, particularly the elderly, for whom the CKD-EPI formula has not been extensively validated. Use of the eGFR is not recommended in the following populations: Individuals with unstable creatinine concentrations, including patients and those with serious co-morbid conditions. Patients with extremes in muscle mass or diet. The data above are obtained from the National Kidney Disease Education Program ( NKDEP) which additionally recommends that when the eGFR is used in patients with extremes of body mass index for purposesof drug dosing, the eGFR should be multiplied by the estimated BMI.3Result Comment: The eGFR is calculated using the CKD-EPI formula. In most young, healthy individualsthe eGFR will be >90 mL/min/1.73m2. The eGFR declines with age. An eGFR of 60-89 may be normal insome populations, particularly the elderly, for whom the CKD-EPI formula has not been extensively validated. Use of the eGFR is not recommended in the following populations: Individuals with unstable creatinine concentrations, including patients and those with serious co-morbid conditions. Patients with extremes in muscle mass or diet. The data above are obtained from the National Kidney Disease Education Program ( NKDEP) which additionally recommends that when the eGFR is used in patients with extremes of body mass index for purposesof drug dosing, the eGFR should be multiplied by the estimated BMI.CARDIAC ENZYMES Most recent to oldest [Reference Range]: 1 2 3 Total CK [12-191 unit/L] 95 unit/L 76 unit/L (08/03/17 6:29 PM) (08/03/17 2:36 PM) CK MB [0.5-3.6 ng/mL] 2.5 ng/mL 2.1 ng/mL (08/03/17 6:29 PM) (08/03/17 2:36 PM) CK MB Index [0.0-2.5] 2.6 2.8 *HI* *HI* (08/03/17 6:29 PM) (08/03/17 2:36 PM) Troponin-I [0.00-0.40 ng/mL] 0.15 ng/mL 0.13 ng/mL (08/03/17 6:29 PM) (08/03/17 2:36 PM) proBNP [0-125 pg/mL] 2465 pg/mL *HI* (08/03/17 4:14 PM) HEMATOLOGY Most recent to oldest 1 2 3 [Reference Range]: WBC [3.7-10.4 K/CMM] 7.6 K/CMM 7.3 K/CMM 7.7 K/CMM (08/06/17 4:44 AM) (08/05/17 4:28 AM) (08/04/17 4:56 AM) RBC [4.70-6.10 M/CMM] 5.40 M/CMM 5.30 M/CMM 5.04 M/CMM (08/06/17 4:44 AM) (08/05/17 4:28 AM) (08/04/17 4:56 AM) Hgb [14.0-18.0 g/dL] 15.2 g/dL 15.0 g/dL 14.3 g/dL (08/06/17 4:44 AM) (08/05/17 4:28 AM) (08/04/17 4:56 AM) Hct [42.0-54.0 %] 47.1 % 46.0 % 44.0 % (08/06/17 4:44 AM) (08/05/17 4:28 AM) (08/04/17 4:56 AM) MCV [80.0-94.0 fL] 87.1 fL 86.8 fL 87.4 fL (08/06/17 4:44 AM) (08/05/17 4:28 AM) (08/04/17 4:56 AM) MCH [27.0-31.0 pg] 28.2 pg 28.4 pg 28.4 pg (08/06/17 4:44 AM) (08/05/17 4:28 AM) (08/04/17 4:56 AM) MCHC [32.0-36.0 g/dL] 32.4 g/dL 32.7 g/dL 32.6 g/dL (08/06/17 4:44 AM) (08/05/17 4:28 AM) (08/04/17 4:56 AM) RDW [11.5-14.5 %] 14.0 % 14.0 % 13.8 % (08/06/17 4:44 AM) (08/05/17 4:28 AM) (08/04/17 4:56 AM) MPV [7.4-10.4 fL] 10.0 fL 10.1 fL 9.9 fL (08/06/17 4:44 AM) (08/05/17 4:28 AM) (08/04/17 4:56 AM) Platelet [133-450 K/CMM] 256 K/CMM 232 K/CMM 208 K/CMM (08/06/17 4:44 AM) (08/05/17 4:28 AM) (08/04/17 4:56 AM) Segs [45.0-75.0 %] 71.4 % 68.9 % 73.2 % (08/06/17 4:44 AM) (08/05/17 4:28 AM) (08/04/17 4:56 AM) Lymphocytes [20.0-40.0 %] 17.4 % 20.7 % 17.5 % *LOW* (08/05/17 4:28 AM) *LOW* (08/06/17 4:44 AM) (08/04/17 4:56 AM) Monocytes [2.0-12.0 %] 8.6 % 7.7 % 7.3 % (08/06/17 4:44 AM) (08/05/17 4:28 AM) (08/04/17 4:56 AM) Eosinophils [0.0-4.0 %] 2.2 % 2.3 % 1.5 % (08/06/17 4:44 AM) (08/05/17 4:28 AM) (08/04/17 4:56 AM) Basophils [0.0-1.0 %] 0.4 % 0.4 % 0.5 % (08/06/17 4:44 AM) (08/05/17 4:28 AM) (08/04/17 4:56 AM) Segs-Bands # [1.5-8.1 K/CMM] 5.5 K/CMM 5.0 K/CMM 5.6 K/CMM (08/06/17 4:44 AM) (08/05/17 4:28 AM) (08/04/17 4:56 AM) Lymphocytes # [1.0-5.5 K/CMM] 1.3 K/CMM 1.5 K/CMM 1.3 K/CMM (08/06/17 4:44 AM) (08/05/17 4:28 AM) (08/04/17 4:56 AM) Monocytes # [0.0-0.8 K/CMM] 0.7 K/CMM 0.6 K/CMM 0.6 K/CMM (08/06/17 4:44 AM) (08/05/17 4:28 AM) (08/04/17 4:56 AM) Eosinophils # [0.0-0.5 K/CMM] 0.2 K/CMM 0.2 K/CMM 0.1 K/CMM (08/06/17 4:44 AM) (08/05/17 4:28 AM) (08/04/17 4:56 AM) PT [12.0-14.7 seconds] 15.2 seconds *HI* (08/05/17 7:02 AM) INR [0.85-1.17] 1.19 *HI* (08/05/17 7:02 AM) PTT [22.9-35.8 seconds] 30.5 seconds (08/05/17 7:02 AM) Immunizations No data available for this section Procedures Procedure Date Related Diagnosis Body Site Status Laparoscopic repair of hernia Completed Social History Social History Type Response Alcohol Current, Type Beer. Frequency: 1-2 times per year. Smoking Status Current every day smoker; Type: Chewing tobacco; Previous treatment: None; Ready to change: Yes; Concerns about tobacco use in household: No; Exposure to Tobacco Smoke None; Cigarette Smoking Last 365 Days No; Reg Smoking Cess ation Counseling No; Other Tobacco Frequency 1 can Q3-4 days; entered on: 08/03/17 Assessment and Plan Extracted from: Title: Clinical Document Author: Junior Woodard MD Date: 08/06/17 Progress Note Junior Woodard M.D. [facility] Follow up reason:HF and NYHA class IV on admission SOB less no chest pain S/P cath: no groin problems Other Diagnosis: * Newly diagnosed combined systolic and diastolic HF * Nonischemic cardiomyopathy * LBBB 1. Hypertension. 2. Paroxysmal atrial fibrillation. 3. Obesity. Vitals Tmp(F) Tmp(C) Ttype BP MAP Pulse RR SpO2 FIO2 ETCO2 08/06 03:55 98.5 36.94 oral 109/71 --- 93 18 97 --- --- 08/05 23:59 97.8 36.56 oral 109/82 --- 95 18 98 --- --- 08/05 20:05 97.5 36.39 oral 136/89 --- 80 18 98 --- --- 08/05 17:02 97.9 36.61 oral 133/89 --- 82 18 99 --- --- 08/05 12:04 ---- ---- ---- 120/90 --- 81 18 --- --- --- NECK: JVD present. HEENT: EOMI. HEART: S1, S2 is normal with a soft systolic murmur at maximal intensity in left parasternal area. No rub. CHEST: Bilateral air entry present. No wheezing, no crepitation. ABDOMEN: Bowel sounds present, nontender but mildly distended. NEUROLOGIC: Alert, awake, oriented x 3. No lateralization. EXTREMITIES: Trace to 1+ pitting edema present. Labs & Diagnostic Work up: Labs (Last four charted values) WBC 7.6 (AUG 06) 7.3 (AUG 05) 7.7 (AUG 04) Hgb 15.2 (AUG 06) 15.0 (MAR 07) 14.3 (AUG 04) Hct 47.1 (JUL 08) 46.0 (JUL 07) 44.0 (JUL 06) Plt 256 (JUL 08) 232 (JUL 07) 208 (AUG 04) Na 138 (JUL 08) 144 (JUL 07) 143 (JUL 06) 145 (JUL 06) K 4.0 (JUL 08) 3.8 (JUL 07) 4.0 (JUL 06) 3.7 (JUL 06) CO2 27 (AUG 06) 27 (AUG 05) 29 (AUG 04) 26 (AUG 04) Cl 104 (AUG 06) 108 (AUG 05) 106 (AUG 04) H 112 (AUG 04) Cr 1.12 (AUG 06) 1.09 (AUG 05) 1.10 (AUG 04) 1.08 (AUG 04) BUN H 23 (AUG 06) 20 (AUG 05) H 25 (AUG 04) H 23 (AUG 04) Glucose Random H 116 (AUG 06) H 105 (AUG 05) 82 (AUG 04) H 108 (AUG 04) Mg 1.9 (AUG 05) 2.0 (AUG 04) 2.1 (AUG 04) 2.2 (AUG 03) Phos 4.2 (AUG 05) 3.7 (AUG 04) Ca 8.5 (AUG 06) 8.8 (AUG 05) 8.6 (AUG 04) L 8.4 (AUG 04) PT H 15.2 (AUG 05) INR H 1.19 (AUG 05) PTT 30.5 (AUG 05) Troponin 0.15 (AUG 03) 0.13 (AUG 03) CK MB 2.5 (AUG 03) 2.1 (AUG 03) Total CK 95 (AUG 03) 76 (AUG 03) Medications Medications (6) Active Scheduled: (5) aspirin 81 mg ECT 81 mg 1 tab, PO, Daily carvedilol 12.5 mg TAB 25 mg 2 tab, PO, Q12H furosemide 10mg/ml INJ 4ml VL 40 mg 4 mL, IVP, BID Diuretic lisinopril 5 mg TAB 2.5 mg 0.5 tab, PO, Bedtime rivaroxaban 10mg TAB 20 mg 2 tab, PO, QPM Continuous: (0) PRN: (1) hydrALAZINE 20 mg/1 ml VL 10 mg 0.5 mL, IV, Q4H Assessment/Plan : -S/P cath and optimized on meds -Due to his insurance [employer] will take 5-7 days to be fitted; patient can go home on MEDS. -I explained to patient that he needs to take his MEDS regularly and follow up. Plan is to optimize cardiac meds and repeat ECHO in 90 days. -follow up with Dr Woodard 08/13/2017 at 3 pm. -Prescriptions given to Nurse -patient phone numbers: Home: [phone] Cell: [phone] work: [phone] Extracted from: Title: Clinical Document Author: Junior Woodard MD Date: 08/03/17 dictated Extracted from: Title: General Admission H&P * Author: Gorge Escudero MD Date: 08/03 Impression and Plan new onset heart failure atrial fibirllation hypertension place in tele observation resume metoprolol, aspirin; cardiiology consulted echo ordered dvt ppx
[2018-10-10] MEDS ORDERED: VANCOMYCIN/NS 1 gm 1 GM/250 ML BAG IV SCH (10:30)
[2018-10-10 10:46] LABS: Absolute Lymphocytes (CBC) 0.7 K/uL (0.7-4.9); Absolute Monocytes 1.4 K/uL (0.1-1.3); Absolute Neutrophil 17.5 K/uL (1.8-8.0); Basophils % 0.4 % (0-1.3); Eosinophils % 0.4 % (0-4.4); Hematocrit 43.6 % (39.6-49.0); Lymphocytes % 3.8 % (15.3-44.8); MPV 10.7 fL (7.6-11.3); Monocytes % 7.3 % (3.3-12.3); RBC Red Blood Cell Count 5.01 M/uL (4.33-5.43)
--- NOTE | 2018-10-10 10:53 | EDPHYS ---
Physician Documentation [facility] Name: Gurpreet Tristan Age: 58 yrs Sex: Male : 1960 Arrival Date: 10/10/2018 Time: 09:59 Bed 8 Private MD: ED Physician Ishan Buck HPI: 10/10 11:19 This 58 yrs old Black Male presents to ER via EMS with complaints of Back Injury, Post roger Surgical Pain. 11:19 The patient presents with pain that is acute, with no known mechanism of injury. The roger symptoms are located in the low back, lumbar area, left low back and right low back. Onset: The symptoms/episode began/occurred 3 day(s) ago. Location: lumbar area, left low back and right low back. Associated signs and symptoms: Pertinent positives: fever. The problem was sustained infected laminectomy site, spinal fluid leak. Modifying factors: The patient symptoms are alleviated by. Severity of symptoms: At their worst the symptoms were mild, moderate, in the emergency department the symptoms have improved. The patient has experienced similar episodes in the past, a few times. Historical: - Allergies: 10:01 No Known Allergies; bp - Home Meds: 10:01 lisinopril Oral [Active]; bp - PMHx: 10:01 Hypertension; High Cholesterol; Atrial Fib; bp - Immunization history:: Adult Immunizations up to date. - Social history:: Smoking status: Patient/guardian denies using tobacco. - Ebola Screening: : No symptoms or risks identified at this time. - Family history:: not pertinent. ROS: 11:19 Constitutional: Negative for fever, chills, and weight loss, Eyes: Negative for injury, roger pain, redness, and discharge, ENT: Negative for injury, pain, and discharge, Neck: Negative for injury, pain, and swelling, Cardiovascular: Negative for chest pain, palpitations, and edema, Respiratory: Negative for shortness of breath, cough, wheezing, and pleuritic chest pain, Abdomen/GI: Negative for abdominal pain, nausea, vomiting, diarrhea, and constipation, : Negative for injury, bleeding, discharge, and swelling, MS/Extremity: Negative for injury and deformity, Skin: Negative for injury, rash, and discoloration, Neuro: Negative for headache, weakness, numbness, tingling, and seizure, Psych: Negative for depression, anxiety, suicide ideation, homicidal ideation, and hallucinations, Allergy/Immunology: Negative for hives, rash, and allergies, Endocrine: Negative for neck swelling, polydipsia, polyuria, polyphagia, and marked weight changes, Hematologic/Lymphatic: Negative for swollen nodes, abnormal bleeding, and unusual bruising. 11:19 Constitutional: Positive for fever. 11:19 Back: Positive for decreased range of motion, pain at rest, of the lumbar area, left low back and right low back. Exam: 11:19 Constitutional: This is a well developed, well nourished patient who is awake, alert, roger and in no acute distress. Head/Face: Normocephalic, atraumatic. Eyes: Pupils equal round and reactive to light, extra-ocular motions intact. Lids and lashes normal. Conjunctiva and sclera are non-icteric and not injected. Cornea within normal limits. Periorbital areas with no swelling, redness, or edema. ENT: Nares patent. No nasal discharge, no septal abnormalities noted. Tympanic membranes are normal and external auditory canals are clear. Oropharynx with no redness, swelling, or masses, exudates, or evidence of obstruction, uvula midline. Mucous membranes moist. Neck: Trachea midline, no thyromegaly or masses palpated, and no cervical lymphadenopathy. Supple, full range of motion without nuchal rigidity, or vertebral point tenderness. No Meningismus. Chest/axilla: Normal chest wall appearance and motion. Nontender with no deformity. No lesions are appreciated. Cardiovascular: Regular rate and rhythm with a normal S1 and S2. No gallops, murmurs, or rubs. Normal PMI, no JVD. No pulse deficits. Respiratory: Lungs have equal breath sounds bilaterally, clear to auscultation and percussion. No rales, rhonchi or wheezes noted. No increased work of breathing, no retractions or nasal flaring. Abdomen/GI: Soft, non-tender, with normal bowel sounds. No distension or tympany. No guarding or rebound. No evidence of tenderness throughout. Male : Normal genitalia with no discharge or lesions. Skin: Warm, dry with normal turgor. Normal color with no rashes, no lesions, and no evidence of cellulitis. MS/ Extremity: Pulses equal, no cyanosis. Neurovascular intact. Full, normal range of motion. Neuro: Awake and alert, GCS 15, oriented to person, place, time, and situation. Cranial nerves II-XII grossly intact. Motor strength 5/5 in all extremities. Sensory grossly intact. Cerebellar exam normal. Normal gait. Psych: Awake, alert, with orientation to person, place and time. Behavior, mood, and affect are within normal limits. 11:19 Back: pain, that is mild, that is moderate, ROM is painful, normal spinal alignment noted, CVA tenderness, is absent, vertebral tenderness, is appreciated at L1, L2, L3, L4 and L5, muscle spasm, is appreciated in the lumbar area, left low back and right low back. Vital Signs: 10:01 BP 93 / 64; Pulse 98; Resp 18; Temp 97.8; Pulse Ox 98% ; Weight 99.79 kg; Height 6 ft. bp 3 in. (190.50 cm); 10:30 BP 90 / 68; Pulse 80; Resp 16; Pulse Ox 97% ; bp 11:24 BP 95 / 74; Pulse 84; Resp 14; Temp 97.8; Pulse Ox 99% ; bp 10:01 Body Mass Index 27.50 (99.79 kg, 190.50 cm) bp MDM: 10:02 Patient medically screened. [facility] 11:24 Data reviewed: vital signs, nurses notes, lab test result(s), EKG, radiologic studies, roger plain films. 10/10 10:05 Order name: Basic Metabolic Panel; Complete Time: 11:24 [facility] 10/10 10:05 Order name: CBC with Diff [facility] 10/10 10:05 Order name: LFT's; Complete Time: 11:24 [facility] 10/10 10:05 Order name: Magnesium; Complete Time: 11:24 [facility] 10/10 10:05 Order name: NT PRO-BNP; Complete Time: 11:24 [facility] 10/10 10:05 Order name: PT-INR; Complete Time: 11:24 [facility] 10/10 10:05 Order name: Troponin (emerg Dept Use Only); Complete Time: 11:24 [facility] 10/10 10:05 Order name: XRAY Chest (1 view); Complete Time: 11:24 [facility] 10/10 10:05 Order name: Blood Culture Adult (2) [facility] 10/10 10:05 Order name: Wound Culture [facility] 05/12 10:05 Order name: Procalcitonin [facility] 10/10 10:05 Order name: Lactate; Complete Time: 11:24 [facility] 10/10 11:37 Order name: Manual Differential [facility] 10/10 10:05 Order name: Cardiac monitoring; Complete Time: 10:10 [facility] 10/10 10:05 Order name: EKG - Nurse/Tech; Complete Time: 10:10 [facility] 10/10 10:05 Order name: O2 Per Protocol; Complete Time: 10:10 [facility] 10/10 10:05 Order name: O2 Sat Monitoring; Complete Time: 10:10 [facility] 10/10 11:26 Order name: NPO; Complete Time: 11:33 [facility] Administered Medications: 10:30 Drug: Zosyn 3.375 grams Route: IVPB; Infused Over: 60 mins; Site: right forearm; bp 11:33 Follow up: IV Status: Completed infusion; IV Intake: 100ml bp 10:30 Drug: NS 0.9% 1000 ml Route: IV; Rate: 125 ml/hr; Site: right forearm; bp 11:33 Follow up: IV Status: Infusion continued upon transfer bp 10:30 Drug: fentaNYL (PF) 50 mcg Route: IVP; Site: right forearm; bp 11:49 Follow up: Response: Pain is decreased bp 10:30 Drug: Zofran 4 mg Route: IVP; Site: right forearm; bp 11:49 Follow up: Response: Nausea is decreased bp 11:30 Drug: vancoMYCIN 1 grams Route: IVPB; Infused Over: 2 hrs; Site: right forearm; bp 11:50 Follow up: IV Status: Infusion continued upon transfer bp Disposition: 10/10/18 10:52 Transfer ordered to Other Acute Care Facility. Diagnosis are Cutaneous abscess of back [any part, except buttock] - sp laminectomy, spinal leak, Fever, unspecified, Elevated white blood cell count. - Reason for transfer: Higher level of care. - Accepting physician is to dr thomas alexis. - Condition is Fair. - Problem is new. - Symptoms are unchanged. Signatures: Dispatcher [employer] EDIshan Miramontes MD MD cha Peltier, Brian, RN RN bp Corrections: (The following items were deleted from the chart) 11:05 10:52 10/10/2018 10:52 Transfer ordered to Other Acute Care Facility. Diagnosis is [facility] Cutaneous abscess of back [any part, except buttock] - sp laminectomy, spinal leak. Reason for transfer: Higher level of care. Accepting physician is to dr thomas alexis. Condition is Fair. Problem is new. Symptoms are unchanged. [facility] 12:35 11:05 10/10/2018 10:52 Transfer ordered to Other Acute Care Facility. Diagnosis is bp Cutaneous abscess of back [any part, except buttock] - sp laminectomy, spinal leak; Fever, unspecified; Elevated white blood cell count. Reason for transfer: Higher level of care. Accepting physician is to dr thomas alexis. Condition is Fair. Problem is new. Symptoms are unchanged. [facility]
--- NOTE | 2018-10-10 10:53 | ER ---
Nurse's Notes [facility] Name: Gurpreet Tristan Age: 58 yrs Sex: Male : 1960 Arrival Date: 10/10/2018 Time: 09:59 Bed 8 Private MD: Diagnosis: Cutaneous abscess of back [any part, except buttock]-sp laminectomy, spinal leak;Fever, unspecified;Elevated white blood cell count Presentation: 10/10 09:59 Presenting complaint: EMS states: HEADACHE, BACK PAIN AND FEVER WITH DRAINAGE FROM bp SURGICAL SITE. Transition of care: patient was not received from another setting of care. Onset of symptoms is unknown. Risk Assessment: Do you want to hurt yourself or someone else? Patient reports no desire to harm self or others. Initial Sepsis Screen: Does the patient meet any 2 criteria? HR > 90 bpm. No. Patient's initial sepsis screen is negative. Does the patient have a suspected source of infection? Yes: Skin breakdown/wound. Care prior to arrival: None. 09:59 Method Of Arrival: EMS: [facility] bp 09:59 Acuity: RITA 3 bp Triage Assessment: 10:01 General: Appears in no apparent distress. uncomfortable, Behavior is cooperative, bp appropriate for age, anxious. Pain: Complains of pain in head and back. EENT: No deficits noted. Neuro: Level of Consciousness is awake, alert, obeys commands, Oriented to person, place, time, situation, Appropriate for age. Cardiovascular: No deficits noted. Respiratory: Airway is patent Respiratory effort is even, unlabored, Respiratory pattern is regular, symmetrical. GI: No signs and/or symptoms were reported involving the gastrointestinal system. : No signs and/or symptoms were reported regarding the genitourinary system. Derm: No deficits noted. Musculoskeletal: Circulation, motion, and sensation intact. Range of motion: intact in all extremities. Historical: - Allergies: 10:01 No Known Allergies; bp - Home Meds: 10:01 lisinopril Oral [Active]; bp - PMHx: 10:01 Hypertension; High Cholesterol; Atrial Fib; bp - Immunization history:: Adult Immunizations up to date. - Social history:: Smoking status: Patient/guardian denies using tobacco. - Ebola Screening: : No symptoms or risks identified at this time. - Family history:: not pertinent. Screenin:07 Abuse screen: Denies threats or abuse. Denies injuries from another. Nutritional bp screening: No deficits noted. Tuberculosis screening: No symptoms or risk factors identified. Fall Risk None identified. Assessment: 10:07 General: SEE TRIAGE NOTE. bp 11:00 Reassessment: TRANSFER IN PROCESS, VS STABLE ON MONITOR, ABX INFUSING. bp 11:31 Reassessment: REPORT TO [facility] FOR RM 417. bp 12:33 Reassessment: PT ANGÉLICA WITH EMS FOR [facility]. bp Vital Signs: 10:01 BP 93 / 64; Pulse 98; Resp 18; Temp 97.8; Pulse Ox 98% ; Weight 99.79 kg; Height 6 ft. bp 3 in. (190.50 cm); 10:30 BP 90 / 68; Pulse 80; Resp 16; Pulse Ox 97% ; bp 11:24 BP 95 / 74; Pulse 84; Resp 14; Temp 97.8; Pulse Ox 99% ; bp 10:01 Body Mass Index 27.50 (99.79 kg, 190.50 cm) bp ED Course: 09:59 Patient arrived in ED. bp 10:01 Triage completed. bp 10:01 Arm band placed on. bp 10:02 Ishan Buck MD is Attending Physician. roger 10:07 Patient has correct armband on for positive identification. Bed in low position. Call bp light in reach. Side rails up X2. Adult w/ patient. 10:09 Víctor Boothe, RN is Primary Nurse. bp 10:17 EKG done, by ED staff, reviewed by Ishan Buck MD. jb1 10:30 Inserted saline lock: 18 gauge in right forearm, using aseptic technique. Blood bp collected. 10:34 XRAY Chest (1 view) In Process Unspecified. EDMS 10:45 transfer initiated with Paz at the [facility]. eb 11:02 connected the hospitalist aboriginal education worker coordinator for [facility] with Dr. Buck for eb patient transfer consultation. 11:11 administrative approval given by Abigail Champion RN from the [facility] eb center/ the patient has been accepted to the [facility] by Dr. Vitor Ng/ patient will be going to the 3rd floor/ report to be called to [phone]. 12:34 Patient transferred, IV remains in place. bp 12:35 No provider procedures requiring assistance completed. bp Administered Medications: 10:30 Drug: Zosyn 3.375 grams Route: IVPB; Infused Over: 60 mins; Site: right forearm; bp 11:33 Follow up: IV Status: Completed infusion; IV Intake: 100ml bp 10:30 Drug: NS 0.9% 1000 ml Route: IV; Rate: 125 ml/hr; Site: right forearm; bp 11:33 Follow up: IV Status: Infusion continued upon transfer bp 10:30 Drug: fentaNYL (PF) 50 mcg Route: IVP; Site: right forearm; bp 11:49 Follow up: Response: Pain is decreased bp 10:30 Drug: Zofran 4 mg Route: IVP; Site: right forearm; bp 11:49 Follow up: Response: Nausea is decreased bp 11:30 Drug: vancoMYCIN 1 grams Route: IVPB; Infused Over: 2 hrs; Site: right forearm; bp 11:50 Follow up: IV Status: Infusion continued upon transfer bp Intake: 11:33 IV: 100ml; Total: 100ml. bp Outcome: 10:52 ER care complete, transfer ordered by . [facility] 12:33 Transferred by ground EMS to [facility], Transfer form completed. bp 12:33 Condition: stable 12:33 Instructed on the need for transfer. 12:35 Patient left the ED. bp Addendum: 10/15/2018 16:52 Addendum: Culture Results: Positive wound culture. No further action required. Bacteria d m5 sensitive to prescribed antibiotic. 10/17/2018 19:21 Addendum: Culture Results: Positive blood culture. Phone [facility] Attempt [facility] , faxed to JOB Padilla. Signatures: Dispatcher [employer] EDMS Gurpreet Martines [email or web address] Sultana Cruz RN RN dmIshan Degroot MD MD cha Williams, Irene RN Víctor Andres RN RN bp Botello, Elizabeth eb Corrections: (The following items were deleted from the chart) 10/10 11:11 11:08 transfer initiated with Paz at the [facility] eb victoriano
[2018-10-10] MEDS ORDERED: FENTANYL CITR 100 MCG/2 ML ONE (11:00)
[2018-10-10] MEDS ORDERED: ONDANSETRON 4 MG/2 ML VIAL ONE (11:00)
[2018-10-10] MEDS ORDERED: NA CHLORIDE 0.9% 1,000 ML ONE (11:01)
[2018-10-10] MEDS ORDERED: PIPER/TAZO/NS 3.375gm 3.375 GM/100 ML BAG ONE (11:01)
[2018-10-10 11:04] LABS: Protime INR 1.19
[2018-10-10 11:07] LABS: ALT/SGPT 16 U/L (12-78); AST/SGOT 8 U/L (15-37); Albumin 3.4 g/dL (3.4-5.0); Alkaline Phosphatase 77 U/L (45-117); BUN Blood Urea Nitrogen 17 mg/dL (7-18); Bicarbonate 28 mmol/L (21-32); Bilirubin Direct 0.2 mg/dL (0-0.2); Bilirubin Total 0.9 mg/dL (0.2-1.0); Glucose Level 111 mg/dL (74-106); Magnesium 2.1 mg/dL (1.8-2.4); NT PRO-BNP 1090 pg/mL (<125); Potassium 3.9 mmol/L (3.5-5.1); Protein, Total 7.4 g/dL (6.4-8.2); Sodium Level 139 mmol/L (136-145); Troponin (Emerg Dept Use Only) < 0.02 ng/mL (0.0-0.045)
--- NOTE | 2018-10-10 11:20 | RAD REPORT ---
EXAM DESCRIPTION: RAD - Chest Single View - 10/10/2018 10:36 am CLINICAL HISTORY: Cough, shortness of breath COMPARISON: July 2011 TECHNIQUE: AP portable chest image was obtained 1034 hours . FINDINGS: Lungs are clear. Heart and vasculature are normal. No measurable pleural effusion and no p neumothorax. No acute bony abnormality seen. No acute aortic findings suspected. IMPRESSION: No acute cardiopulmonary process.
[2018-10-10 11:37] LABS: Blood Morphology Comment NOT SEEN (NOT SEEN); Platelet Estimate ADEQ
[2018-10-10 12:57] VITALS: TEMP 97.8
[2018-10-10 13:00] VITALS: BP 95/74; O2SAT 99
== END 2018-10-10 12:35 ==
LOC: ER 09:56
DX: L02.212 Cutaneous abscess of back [any part, except buttock and flank] (principal); G96.0 Cerebrospinal fluid leak; R50.9 Fever, unspecified; D72.829 Elevated white blood cell count, unspecified; I10 Essential (primary) hypertension; I48.91 Unspecified atrial fibrillation; Z98.890 Other specified postprocedural states
CPT/HCPCS: 36415; 71045; 80048; 80076; 83605; 83735; 83880; 84145; 84484; 85025; 85610; 87040; 87070; 87077; 87186; 87205; 96365; 96375; 99285; J2405; J2543; J3010; J3370; J7030

== ENCOUNTER 2020-09-11 09:31 | Emergency (ER) | payer BC ==
--- OUTSIDE RECORDS SUMMARY | 2020-09-11 09:34 | XMS REPORT | Continuity of Care Document ---
:[address] [facility] t Address [address] [place] [address] Care Team Providers Name Role Phone Abhay ANDERSON Rk Primary Care Physician Daylin GLORIA, P. Attending Clinician Salvador GLORIA RBritt Attending Clinician Jeyson Edward Attending Clinician Jeyson Edward Admitting Clinician Payers Payer Name Policy Type Policy Effective Date Expiration Date Sour ce Number BCBSBCBS CHOICE [id number] 2016 [place] PPO/FEDERAL 00:00:00 Taoist EMPL [id number] 2016-Presen tPPO Problems Condition Condition Condition Status Onset Resolution Last Treating Co mments Source Name Details Category Date Date Treatment Clinician Date SPINAL Diagnosis Active 2018-10-21 Mem oria LEAK, 5- 22:18:00 l CELLULITIS SPINAL 00:00: Herm pretty , ABSCES LEAK, 00 CELLULITIS , ABSCES Active 10/10/2018 [facility] [place] NEW ONSET Diagnosis Active 2017-08-03 Memoria CHF 3- 14:49:00 l NEW 00:00: [place] ONSET CHF 00 Active 08/03/2017 [facility] ATRIAL Diagnosis Active 2017-08-10 Mem oria FIBRILLATI - 21:49:00 l ON ATRIAL 00:00: [place] FIBRILLATI 00 ON Active 8 [facility] LBBB (left LBBB (left Disease Active H yodit bundle bundle 6-13 Methodi branch branch 00:00: st block) block) 00 Cardiomega Cardiomega Disease Active 2015-06 H yodit ly ly 0-24 Methodi 00:00: st 00 Cardiomyop Cardiomyop Disease Active 2015-06 H polinaprakash athy athy 0-24 Methodi 00:00: st 00 Hyperlipid Hyperlipid Disease Active 2015-06 H yodit emia emia 0-24 Methodi 00:00: st 00 Hypertensi Hypertensi Disease Active 2015-06 H polinaprakash on on 0-24 Methodi 00:00: st 00 Sleep Sleep Disease Active 2015-06 Yu apnea apnea 0-24 Methodi 00:00: st 00 Atheroscle Problem 2017-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 Obesity, Problem 2017-11-12 Mem oria unspecifie 13:43:49 l d Obesity, Lenard n unspecifie d 11/12/2017 [facility] Left Problem 2017-11-12 Memor ia bundle-bra 13:43:49 l nch block, Left Lenard n unspecifie bundle-bra d nch block, unspecifie d 11/12/2017 [facility] Body mass Problem 2017-11-12 Me moria index 13:43:49 l (BMI) Body [place] 29.0-29.9, mass index adult (BMI) 29.0-29.9, adult 11/12/2017 [facility] HEART Diagnosis Active 2017-08-03 Mem oria FAILURE, 14:49:00 l UNSPECIFIE HEART Taylor nn D FAILURE, UNSPECIFIE D Active [facility] UNSPECIFIE Diagnosis Active 2017-08-10 Memoria D ATRIAL 21:49:00 l FIBRILLATI Lenard n ON UNSPECIFIE D ATRIAL FIBRILLATI ON Active [facility] CEREBROSPI Diagnosis Active 2018-10-21 Memoria NAL FLUID 22:18:00 l LEAK [place] CEREBROSPI NAL FLUID LEAK Active [facility] [place] Heart Problem 2017-11-12 Memor ia failure, 13:43:49 l unspecifie Heart Taylor nn d failure, unspecifie d 11/12/2017 [facility] Acute Problem 2017-11-12 Memor ia combined 13:43:49 l systolic Acute [place] (congestiv combined e) and systolic diastolic (congestiv (congestiv e) and e) heart diastolic failure (congestiv e) heart failure 11/12/2017 [facility] Dilated Problem 2017-11-12 Randell torrey cardiomyop 13:43:49 l athy Dilated [place] cardiomyop athy 8 [facility] Other Problem 2017-11-12 Memor ia disorders 13:43:49 l of Other [place] plasma-pro disorders tein of metabolism plasma-pro , not tein elsewhere metabolism classified , not elsewhere classified 11/12/2017 [facility] Hypertensi Problem 2017-11-12 M emoria ve heart 13:43:49 l disease [place] with heart Hypertensi failure ve heart disease with heart failure 11/12/2017 [facility] History of Past Illness Condition Condition Condition Status Onset Resolution Last Treating Co mments Source Name Details Category Date Date Treatment Clinician Date Paroxysmal Problem 2017-11-12 2017-11-12 Memoria atrial 3-15 13:43:49 13:43:49 l fibrillati 03:34: Lenard n on Paroxysmal 47 atrial fibrillati on 08/13/2017 11/12/2017 [facility] Allergies, Adverse Reactions, Alerts This patient has no known allergies or adverse reactions. Social History Social Habit Start Date Stop Date Quantity Comments Source Tobacco use and 2020-07-24 2020-07-24 Former user Yu Taoist exposure 00:00:00 00:00:00 Social History 2017-08-03 2017-08-03 [facility] ermpretty 22:05:19 22:05:19 Sex Assigned At [birth year] [facility] ethodist 00:00:00 00:00:00 Smoking Status Start Date Stop Date Source Former smoker 2020-07-24 00:00:00 2020-07-24 00:00:00 Yu Taoist Medications Ordered Filled Start Stop Current Ordering Indication Dosage Frequency Signature Comments Components Source Medication Medication Date Date Medication? Clinician (SIG) Name Name furosemide Yes TAKE ONE Babita ston (LASIX) 40 3-25 TABLET BY Meth [place] mg tablet 00:00: MOUTH st 00 DAILY carvediloL Yes TAKE ONE Babita ston (COREG) 25 3-25 TABLET BY Meth [place] MG tablet 00:00: MOUTH st 00 TWICE A DAY WITH MEALS lisinopriL Yes TAKE ONE Babita ston (PRINIVIL) 3-25 TABLET BY Meth [place] 5 mg tablet 00:00: MOUTH st 00 DAILY carvediloL 2020- No TAKE ONE [place] (COREG) 25 07-27- TABLET BY [facility] MG tablet 00:00: 00:[address] 00 :00 TWICE A DAY WITH MEALS lisinopriL 2020- No TAKE ONE [place] (PRINIVIL) 07-27- TABLET BY [facility] 5 mg tablet 00:00: 00:[address] 00 :00 DAILY furosemide 2020- No TAKE ONE [place] (LASIX) 40 07-27 TABLET BY [facility] mg tablet 00:00: 00:[address] 00 :00 DAILY lisinopriL 2020- No TAKE ONE [place] (PRINIVIL) 06-28 TABLET BY [facility] 5 mg tablet 00:00: 00:[address] 00 :00 DAILY carvediloL 2020- No TAKE ONE [place] (COREG) 25 06-28- TABLET BY [facility] MG tablet 00:00: 00:[address] 00 :00 TWICE A DAY WITH MEALS furosemide 2020- No TAKE ONE [place] (LASIX) 40 06-28 TABLET BY [facility] mg tablet 00:00: 00:[address] 00 :00 DAILY carvediloL 2019-06- No TAKE ONE [place] (COREG) 25 07-29 TABLET BY [facility] MG tablet 00:00: 00:[address] 00 :00 TWICE A DAY WITH MEALS furosemide 2019-06- No TAKE ONE [place] (LASIX) 40 07-29 TABLET BY [facility] mg tablet 00:00: 00:[address] 00 :00 DAILY lisinopriL 2019-06- No TAKE ONE [place] (PRINIVIL) 07-29 TABLET BY [facility] 5 mg tablet 00:00: 00:[address] 00 :00 DAILY lisinopriL 2019-06- No TAKE ONE [place] (PRINIVIL) 07-03 TABLET BY [facility] 5 mg tablet 00:00: 00:[address] 00 :00 DAILY carvediloL 2019-06- No TAKE ONE [place] (COREG) 25 07-03 TABLET BY [facility] MG tablet 00:00: 00:[address] 00 :00 TWICE A DAY WITH A MEAL furosemide 2019-06- No TAKE ONE [place] (LASIX) 40 07-03 TABLET BY [facility] mg tablet 00:00: 00:[address] 00 :00 DAILY furosemide 2019-06- No TAKE ONE [place] (LASIX) 40 06-02 TABLET BY [facility] mg tablet 00:00: 00:[address] 00 :00 DAILY carvediloL 2019-06- No TAKE ONE [place] (COREG) 25 06-02 TABLET BY [facility] MG tablet 00:00: 00:[address] 00 :00 TWICE A DAY WITH A MEAL lisinopriL 2019-06- No TAKE ONE [place] (PRINIVIL) 06-02 TABLET BY [facility] 5 mg tablet 00:00: 00:[address] 00 :00 DAILY lisinopriL 2019- No TAKE ONE [place] (PRINIVIL) 02-28 TABLET BY [facility] 5 mg tablet 00:00: 00:[address] 00 :00 DAILY furosemide 2019- No TAKE ONE [place] (LASIX) 40 02-28 TABLET BY [facility] mg tablet 00:00: 00:[address] 00 :00 DAILY lisinopriL 2019- No TAKE ONE [place] (PRINIVIL) 01-30 TABLET BY [facility] 5 mg tablet 00:00: 00:[address] 00 :00 DAILY carvediloL 2019- No TAKE ONE [place] (COREG) 25 01-29 TABLET BY [facility] MG tablet 00:00: 00:[address] 00 :00 TWICE A DAY WITH A MEAL furosemide 2019- No TAKE ONE [place] (LASIX) 40 8-31 09-30 TABLET BY [facility] mg tablet 00:00: 00:[address] 00 :00 DAILY furosemide 2019- No TAKE ONE [place] (LASIX) 40 8-08 06- TABLET BY [facility] mg tablet 00:00: 00:[address] 00 :00 DAILY furosemide 2019- No TAKE ONE [place] (LASIX) 40 12-05- TABLET BY [facility] mg tablet 00:00: 00:[address] 00 :00 DAILY lisinopriL 2019- No TAKE ONE [place] (PRINIVIL) 601-30 TABLET BY [facility] 5 mg tablet 00:00: 00:[address] 00 :00 DAILY furosemide 2019- No TAKE ONE [place] (LASIX) 40 6- TABLET BY [facility] mg tablet 00:00: 00:[address] 00 :00 DAILY carvediloL 2019- No TAKE ONE [place] (COREG) 25 10-30 TABLET BY [facility] MG tablet 00:00: 00:[address] 00 :00 TWICE A DAY WITH A MEAL furosemide 2019- No TAKE ONE [place] (LASIX) 40 5-12 06-08 TABLET BY [facility] mg tablet 00:00: 00:[address] 00 :00 DAILY furosemide 2019- No TAKE ONE [place] (LASIX) 40 4-13 05-12 TABLET BY [facility] mg tablet 00:00: 00:[address] 00 :00 DAILY furosemide 2019- No TAKE ONE [place] (LASIX) 40 3-16 04-13 TABLET BY [facility] mg tablet 00:00: 00:[address] 00 :00 DAILY lisinopril 2019- No 5mg QD Take 1 [place] (PRINIVIL,Z 11-02 tablet (5 [facility] ESTRIL) 5 00:00: 00:00 mg total) st mg tablet 00 :00 by mouth daily. carvedilol 2019- No 25mg Q.5D Take 1 [place] (COREG) 25 11-02- tablet (25 Me th[facility] MG tablet 00:00: 00:00 mg total) st 00 :00 by mouth 2 (two) times a day with meals. aspirin Yes Take 1 Yu (ECOTRIN) 4-03 tablet Methodi 81 MG 00:00: every day st enteric 00 by oral coated route. tablet carvedilol 2018 Yes 25 mg = 1 Me moria 25 mg oral 3-08 tab, PO, l tablet 14:51: Q12H, # 60 Taylor nn 00 tab, 0 Refill(s) Aspirin 81 Yes 81 mg = 1 Me moria MG Enteric 3-08 tab, PO, l Coated 14:51: Daily, 0 [place] Tablet 00 Refill(s) rivaroxaban Yes 20 mg = 1 M emoria 20 mg oral 3-08 tab, PO, l tablet 14:51: QPM, # 30 Lenard n 00 tab, 0 Refill(s) lisinopril Yes 5 mg = 1 Mem oria 5 mg oral 3-08 tab, PO, l tablet 14:51: Bedtime, # Taylor nn 00 30 tab, 0 Refill(s) Furosemide Yes 40 mg = 1 Me moria 40 MG Oral 3-08 tab, PO, l Tablet 14:51: BID, # 60 Lenard n [Lasix] 00 tab, 0 Refill(s) Lisinopril No Notes: Memor ia 08 (Same as: l 03:00: Prinivil, [place] 00 Zestril) Xarelto No Notes: Memoria 3-07 (Same as: l 23:00: Xarelto) [place] Do Not Crush [place] No Notes: Memoria 3- Give with l 15:00: food. [place] (Same As: Coreg) Lovenox No Notes: Memoria 3-06 Nurse to l 15:47: ensure [place] 00 documentat ion of patient education per anticoagul ation policy. (Same as: Lovenox) Aspirin 81 No Notes: Do Me moria MG Enteric 306 not crush l Coated 15:00: or chew. [place] Tablet 00 (Same As: Ecotrin) Coreg No Notes: Memoria 3-06 Give with l 15:00: food. [place] (Same As: Coreg) Lasix No Notes: Memoria 3-06 (Same as: l 14:00: Lasix) [place] 00 MEDICATION WASTE Product Size: 40 mg Product Wasted: ___ mg Hydralazine No Notes: Randell torrey 08-04 (Same as: l 00:49: Apresoline ) Push over 5 minutes Coreg No Notes: Memoria 3-06 Give with l 00:43: food. 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 Immunizations Ordered Immunization Filled Immunization Date Status Commen ts Source Name Name PFIZER COVID-19 MRNA 2020-08-23 Completed [place] VACCINATION 00:00:00 Taoist PFIZER COVID-19 MRNA 2020-08-02 Completed [place] VACCINATION 00:00:00 Taoist Vital Signs Vital Name Observation Time Observation Value Comments Source Systolic blood 2020-07-24 10:04:00 131 mm[Hg] Catherine lara Taoist pressure Diastolic blood 2020-07-24 10:04:00 78 mm[Hg] Malvin on Taoist pressure Heart rate 2020-07-24 10:04:00 80 /min [place] Body height 2020-07-24 10:04:00 190.5 cm [place] Body weight 2020-07-24 10:04:00 105.688 kg [place] BMI 2020-07-24 10:04:00 29.12 kg/m2 Yu Taoist Systolic (mm Hg) 2017-08-06 15:14:00 Randell rial [place] Diastolic (mm Hg) 2017-08-06 15:14:00 Mem orial [place] Respitory Rate 2017-08-06 15:14:00 Memori al [place] Temperature Oral (F) 2017-08-06 15:14:00 98.3 F [facility] [place] Heart Rate 2017-08-06 15:14:00 [facility] [place] Heart Rate 2017-08-06 09:55:00 [facility] Temperature Oral (F) 2017-08-06 09:55:00 98.5 F [facility] [place] Respitory Rate 2017-08-06 09:55:00 Memori al [place] Systolic (mm Hg) 2017-08-06 09:55:00 Randell rial [place] Diastolic (mm Hg) 2017-08-06 09:55:00 Mem orial [place] Respitory Rate 2017-08-06 05:59:00 Memori al [place] Systolic (mm Hg) 2017-08-06 05:59:00 Randell rial [place] Diastolic (mm Hg) 2017-08-06 05:59:00 Mem orial [place] Temperature Oral (F) 2017-08-06 05:59:00 97.8 F [facility] [place] Heart Rate 2017-08-06 05:59:00 [facility] [place] Weight 2017-08-03 21:56:00 [facility] [place] Height 2017-08-03 21:56:00 190.5 cm [facility] BMI Calculated 2017-08-03 21:56:00 Memori al [place] Procedures Procedure Date / Time Performed Performing Clinician [facility] e ECG 12-LEAD 2020-01-23 20:21:57 Yonathan Florence odann Laparoscopic repair of [facility] hernia Plan of Care Planned Activity Planned Date Details Comments Source Future Scheduled 2020-12-30 INFLUENZA VACCINE [place] Taoist Test 00:00:00 [code = INFLUENZA VACCINE] Future Scheduled 2009 COLONOSCOPY SCREENING [place] [facility]ist Test 00:00:00 [code = COLONOSCOPY SCREENING] Future Scheduled 2009 SHINGLES VACCINES [place] [facility] Test 00:00:00 (#1) [code = SHINGLES VACCINES (#1)] Future Scheduled 1977 Hepatitis C screening Ho kendra Taoist Test 00:00:00 (procedure) [code = 392459954] Encounters Start End Encounter Admission Attending Care Care Encounter Source Date/Time Date/Time Type Type Clinicians Facility Department ID 2018-10-10 Inpatient U [facility] CANDACE [id number] [facility] L 13:28:00 2020-08-23 2020-08-23 Outpatient DAYLIN [facility] [id number] [address] [place] 00:00:00 00:00:[address] EJ [address] 2020-08-02 2020-08-02 Outpatient [facility] [id number] [address] [place] 00:00:00 00:00:[address] 2020-07-24 2020-07-24 [id number] [address] [place] 00:00:00 00:00:00 YONATHAN [address] 2020-01-24 2020-01-24 [facility] [id number] [address] [place] 00:00:00 00:00:00 YONATHAN [address] 2017-08-03 2017-08-06 [place] [id number] 15:54:00 12:23:00 Guardado 64 Jeyson Results Test Description Test Time Test Comments Results Result Comments Source ECG 12 lead 2020-01-24 22:53:56 Test Item Value Reference Range Interpretation Comme nts Ventricular rate (test code = 253) 76 Atrial rate (test code = 255) 76 HI interval (test code = 266) 184 QRSD interval (test code = 260) 170 QT interval (test code = 264) 438 QTC interval (test code = 265) 492 P axis 1 (test code = 267) 65 QRS axis 1 (test code = 268) 114 T wave axis (test code = 270) -50 EKG impression (test code = 273) Normal sinus rhythm-Possible Left atrial enlargement-Left bundle branch block-Abnormal ECG- [place] [facility] [id number] 10:44:0072[facility]ann[facility]M PANEL 2017-08-06 10:44:008.5[facility] HermannCHEM QUXEZ5978-88-17 10:44:0027[facility]annCHEM NDZTJ7698-11-77 10:44:75143Zyiwreos HermannCHEM ZCQWA7495-02-42 10:44:004.0[facility] HermannCHEM VXQXN1019-03-01 10:44:67178Zkreisva HermannCHEM VVDRX4445-64-81 10:44:001.12[facility] HermannCHEM HFJHI7032-52-76 10:44:0023 [facility]annCHEM HHRQQ3316-59-98 10:44:95851Fdmgcsnd HermannCHEM PANEL 2017-08-06 10:44:0011.0[facility] FcqhcbzYQRMUIRCQD1727-18-08 10:44:0017.4[facility] FwtmjiqZRUGSGZXIC7366-54-10 10:44:008.6[facility]orial QqrqhupYDJWXTMVPP8130-05-05 10:44:0071.4[facility] RubgojvLZVUUWFMAK3108-13-31 10:44:000.4[facility] BNTYMIPESG7519-25-76 10:44:002.2[facility] LkoaxxeLYESQFHKOQ9363-13-49 10:44:000.7 [facility] OxxhbhyBCICFWTRTH2571-70-83 10:44:005.5[facility] HermannHEMATOLOGY 2017-08-06 10:44:001.3[facility] ZmgmfzkNKHBILXYDN4299-84-26 10:44:000.2[facility] XwklggpXROLPGNMEJ3003-23-03 10:44:0010.0[facility] OjfoyxdMFBKPJJLMJ6664-19-41 10:44:007.6[facility] TvpklqgQFTRUTLHTW2858-30-18 10:44:0087.1[facility] ECQWASGMJV9611-57-42 10:44:0032.4[facility] ClzqxhrDZXFEMYRYW1403-62-57 10:44:00 Test Item Value Reference Range Interpretation Comments MCH (test code = MCH) 28.2 pg 27.0-31.0 Memorial PnygketJVLIIBWEFX9502-78-34 10:44:005.40[facility] HermannHEMATOLOGY 2017-08-06 10:44:0047.1[facility] IxptyjaWZOIOOHCRH6765-24-21 10:44:0015.2[facility] EnhylccRVURPYMWSL0742-69-43 10:44:43568Ypcruslz TzzygshOJEYYULZOP3852-64-24 10:44:0014.0[facility] FqdxrmmUEMIOQLMGA7720-57-36 13:02:00 Test Item Value Reference Range Interpretation Comments PT (test code = PT) 15.2 s 12.0-14.7 Memorial VqabaoaUHGEPIINWP2626-30-23 13:02:00 Test Item Value Reference Range Interpretation Comments INR (test code = INR) 1.19 1 0.85-1.17 Memorial GgxvtxuHKEVXRPERC9333-90-05 13:02:00 Test Item Value Reference Range Interpretation Comments PTT (test code = PTT) 30.5 s 22.9-35.8 Memorial VbvwrgnFXSBJJCAAJ1859-17-38 10:28:000.4[facility] HermannHEMATOLOGY 2017-08-05 10:28:0068.9[facility] OdjgwmeXPEBSYBFDR0890-60-40 10:28:0020.7[facility] VlyyygzCQSNWGKNYJ0768-17-19 10:28:0014.0[facility] HzajymyXJORZNFOTA3917-59-15 10:28:0010.1[facility] TcnynrpJRTDGKNMSC0681-46-48 10:28:11796Eyijwqwf [place] JIUDHNXGVY4850-36-76 10:28:00 Test Item Value Reference Range Interpretation Comments MCH (test code = MCH) 28.4 pg 27.0-31.0 Memorial MtbusbtPMHHJAOSEK2025-47-67 10:28:0086.8[facility] HermannHEMATOLOGY 2017-08-05 10:28:0032.7[facility] HyzzbixCJGFWAPGGG3807-78-04 10:28:007.3[facility] FmzsnjqRGOYBSYBPR5681-24-25 10:28:005.30[facility] PemwzmgRSDXGSBOCK1635-60-35 10:28:0046.0[facility] SocotkjXQQMMMYHEI5080-18-54 10:28:0015.0[facility] CHEM KKVSU6683-83-19 10:28:001.9[facility] HermannCHEM FEULJ6134-01-57 10:28:004.2 [facility] HermannCHEM MXDTN7054-95-16 10:28:0074[facility] HermannCHEM PANEL 2017-08-05 10:28:000.6[facility] HermannCHEM FVRWI7003-05-80 10:28:0075[facility] HermannCHEM XTVDZ0908-03-95 10:28:0027[facility] HermannCHEM TERUI0757-54-25 10:28:54209Fkiyoqif HermannCHEM GJAAQ6308-52-79 10:28:001.09[facility] HermannCHEM BVNBL8335-34-36 10:28:94793Aghfjbfi HermannCHEM EHFNX0732-34-33 10:28:003.1 [facility] HermannCHEM KGXUA7773-96-31 10:28:0027[facility] HermannCHEM PANEL 2017-08-05 10:28:008.8[facility] HermannCHEM BSJOZ3171-05-15 10:28:90064Qxpitmwl HermannCHEM GMIOH7908-76-20 10:28:003.8[facility] HermannCHEM YYOKN8049-08-70 10:28:0020[facility] HermannCHEM GYCEN9081-69-65 10:28:54206Iaqtjvhq HermannCHEM MQHRS9982-62-54 10:28:006.6[facility] HermannCHEM LZPZU9265-28-63 10:28:00 Test Item Value Reference Range Interpretation Comments A/G Ratio (test code = A/G Ratio) 0.9 1 0.7-1.6 [facility]annCHEM ZLKZH5806-86-69 10:28:0012.8[facility] HermannCHEM PANEL 2017-08-05 10:28:003.5[facility] HermannCHEM PFZHU9103-98-66 10:28:00 Test Item Value Reference Range Interpretation Comments B/C Ratio (test code = B/C Ratio) 18 1 6-25 [facility] EtsofdeZCSGPRUNPB3244-41-11 10:28:000.2[facility] HermannHEMATOLOGY 2017-08-05 10:28:001.5[facility] IobkkreBEICDKAOTY5248-81-45 10:28:005.0[facility] DilevpnBLVQHIDOYO2384-17-97 10:28:000.6[facility] FhegsxrOUGNFJLHGA7197-77-00 10:28:007.7[facility] ErcjgmhAUYYKJQZVS4224-87-89 10:28:002.3[facility] HermannCHEM VZBVI4842-61-58 03:17:002.0[facility] WfxdcnbBNDIQBYSHLMW3938-49-70 03:17:004.0 Memorial OlbgdsaZLTNYAVXORII0758-41-55 03:17:83800Glczsspa HermannELECTROLYTES 2017-08-05 03:17:0029[facility] VxpqzckIPHURLXOWYDP4509-01-67 03:17:97609Knvsqkuw XbvamiuTVCALLDLTLGP2356-45-39 03:17:0025[facility] GjwfsfsSZQWKRTLFUGZ8108-97-06 03:17:001.10[facility] JvmeyrdIFEFBKZIDTSP9285-81-55 03:17:0082[facility] [place] ZXQPPFXINDRD9932-57-00 03:17:0074[facility] GsbjchhYSJFYXBJYSLF1804-18-32 03:17:00 8.6[facility] QudlwnnZCDJBDUYCBYK7004-07-40 03:17:0012.0[facility] HermannCHEM PANEL 2017-08-04 10:56:003.7[facility] HermannCHEM GEOZQ1242-92-55 10:56:00 Test Item Value Reference Range Interpretation Comments B/C Ratio (test code = B/C Ratio) 21 1 6-25 [facility] HermannCHEM MVDSZ6296-16-82 10:56:003.3[facility] HermannCHEM PANEL 2017-08-04 10:56:00 Test Item Value Reference Range Interpretation Comments A/G Ratio (test code = A/G Ratio) 0.9 1 0.7-1.6 [facility] HermannCHEM UXHBE3266-86-37 10:56:0075[facility] HermannCHEM PANEL 2017-08-04 10:56:000.5[facility] HermannCHEM ZVRYP5120-71-05 10:56:0031[facility] HermannCHEM OPNTT3314-26-82 10:56:002.9[facility] HermannCHEM REUNG1105-41-24 10:56:09653Nmjmihwg HermannCHEM GPEMD6837-97-64 10:56:006.2[facility] HermannCHEM HIYOP2514-62-44 10:56:002.1[facility] KfepnupCIHYZKWEBY6314-02-28 10:56:0087.4 [facility] AdjtedeDZXJTRUFUN4186-90-30 10:56:00 Test Item Value Reference Range Interpretation Comments MCH (test code = MCH) 28.4 pg 27.0-31.0 Memorial GnpqkdwGYQTZBYJNO0512-41-47 10:56:0032.6[facility] HermannHEMATOLOGY 2017-08-04 10:56:65017Qtzjtttq WlmbxuwHLWXDPZTCR7721-14-70 10:56:0013.8[facility] DxzfjikLJAOGSQRHX7732-38-77 10:56:009.9[facility] GmfwzjhOUZTKMKTRR2162-88-95 10:56:007.7[facility] BiseigyAAAOAWHCXO6836-57-93 10:56:005.04[facility] YGNBUODSKG7325-94-89 10:56:0014.3[facility] ZfefrigZWBBMTSXXE8852-93-09 10:56:00 44.0[facility] TfbyfqmRXTRVNICJO1807-68-28 10:56:0073.2[facility] HermannHEMATOLOGY 2017-08-04 10:56:005.6[facility] QzeencuQCQHHZBUUC5294-73-14 10:56:000.6[facility] OmftizoIDTHADOLMA6332-71-90 10:56:000.5[facility] PpouztyJDFUJHDFCG9312-32-46 10:56:001.3[facility] PqumcblUCUQXOMYKB3280-90-03 10:56:000.1[facility] IUPKIRWQNB7071-49-51 10:56:0017.5[facility] XhdwwklXZCTWMDHJL2931-48-83 10:56:00 7.3[facility] RrtvmwlOZPJVLINGI3576-57-85 10:56:001.5[facility] HermannCARDIAC XPZNOJU0778-57-47 00:29:00 Test Item Value Reference Range Interpretation Comments CK MB Index (test 2.6 1 See_Comment [Automate d message] The code = CK MB Index) system w [facility] generated this result transmit eneida reference range : <=2.5. The reference range was not used to interpr et this result as gerber l/abnormal. [facility] [id number] 00:29:002.5[facility] [id number] 00:29:000.15[facility] [id number] 00:29:00 95[facility] [id number] 22:14:762689Cegrlktu HermannCHEM [id number] 22:14:00 Test Item Value Reference Range Interpretation Comments A/G Ratio (test code = A/G Ratio) 0.9 1 0.7-1.6 [facility]annCHE[facility] [id number] 22:14:0086[facility]annCHEM PANEL 2017-08-03 22:14:0053[facility]annCHEM [id number] 22:14:21953Lcbofsgg HermannCHEM [id number] 22:14:003.6[facility]annCHE[facility] [id number] 22:14:003.8[facility]annCHE[facility] [id number] 22:14:000.4[facility]annCHEM [id number] 22:14:00 Test Item Value Reference Range Interpretation Comments B/C Ratio (test code = B/C Ratio) 20 1 6-25 [facility] [id number] 22:14:007.4[facility] ENZYMES 2017-08-03 20:36:00 Test Item Value Reference Range Interpretation Comments CK MB Index (test 2.8 1 See_Comment [Automate d message] The code = CK MB Index) system w [employer] generated this result transmit eneida reference range : <=2.5. The reference range was not used to interpr et this result as gerber l/abnormal. [facility] [id number] 20:36:002.1[facility] [id number] 20:36:000.13[facility]annCARD[facility]AC [id number] 20:36:00 76[facility]
--- NOTE | 2020-09-11 10:23 | RAD REPORT ---
EXAM DESCRIPTION: RAD - Ankle Left 3 View - 09/11/2020 10:14 am CLINICAL HISTORY: PAIN COMPARISON: No comparisons FINDINGS: Significant soft tissue swelling is present about the ankle. Small bony fragment is seen a djacent to the medial malleolus which could be a small avulsion injury, age undetermined. No dislocat ion. Small calcaneal spurs.
--- NOTE | 2020-09-11 10:23 | RAD REPORT ---
EXAM DESCRIPTION: RAD - Foot Left 2 View - 09/11/2020 10:14 am CLINICAL HISTORY: PAIN COMPARISON: No comparisons FINDINGS: Mild soft tissue swelling is seen along the dorsum of the foot. Hallux valgus is present. Small calcaneal spurs are noted. No fracture or dislocation is evident.
--- NOTE | 2020-09-11 10:36 | ER ---
Nurse's Notes [facility] Name: Gurpreet Tristan Age: 60 yrs Sex: Male : 1960 Arrival Date: 09/11/2020 Time: 09:36 Bed 25 Private MD: Diagnosis: Sprain of ankle;Avulsion fracture medial malleolus- left ankle Presentation: 09/11 09:43 Chief complaint: EMS states: Sprained ankle on 31 August, x-ray the next day was jl7 negative, pt reports continued severe pain. PCP wants him to have another x-ray. Coronavirus screen: Client denies travel out of the [place] in the last 14 days. At this time, the client does not indicate any symptoms associated with coronavirus-19. Ebola Screen: No symptoms or risks identified at this time. Initial Sepsis Screen: Does the patient meet any 2 criteria? No. Patient's initial sepsis screen is negative. Does the patient have a suspected source of infection? No. Patient's initial sepsis screen is negative. Risk Assessment: Do you want to hurt yourself or someone else? Patient reports no desire to harm self or others. Onset of symptoms was September 19, 2020. Care prior to arrival: None. Transition of care: patient was not received from another setting of care. 09:43 Method Of Arrival: EMS: [facility] jl7 09:43 Acuity: RITA 4 jl7 Triage Assessment: 09:46 General: Appears in no apparent distress. uncomfortable, Behavior is calm, cooperative, jl7 appropriate for age. Pain: Complains of pain in left ankle Pain currently is 10 out of 10 on a pain scale. Is continuous. Neuro: Level of Consciousness is awake, alert, obeys commands, Oriented to person, place, time, situation. Cardiovascular: Denies chest pain, palpitations, Patient's skin is warm and dry. Respiratory: Airway is patent Respiratory effort is even, unlabored, Respiratory pattern is regular, symmetrical. Derm: Skin is pink, warm \T\ dry. Musculoskeletal: Range of motion: limited in left ankle Swelling present in left ankle. Historical: - Allergies: 09:46 No Known Allergies; jl7 - Home Meds: 09:46 aspirin 81 mg Oral TbEC 1 tab once daily [Active]; carvedilol oral oral [Active]; jl7 lisinopril Oral [Active]; Metoprolol Tartrate Oral [Active]; 09:51 furosemide 40 mg Oral tab 1 tab once daily [Active]; ca1 - PMHx: 09:46 Atrial Fib; High Cholesterol; jl7 - Immunization history:: Adult Immunizations up to date. - Social history:: Smoking status: Patient denies any tobacco usage or history of. Screenin:48 Abuse screen: Denies threats or abuse. Denies injuries from another. Nutritional jl7 screening: No deficits noted. Tuberculosis screening: No symptoms or risk factors identified. Fall Risk None identified. Assessment: 09:48 General: See triage assessment. jl7 10:44 Reassessment: Patient appears in no apparent distress at this time. Patient is alert, ca1 oriented x 3, equal unlabored respirations, skin warm/dry/pink. Vital Signs: 09:43 BP 94 / 69; Pulse 83; Resp 15; Temp 97.1; Pulse Ox 98% ; Weight 103.42 kg; Height 6 ft. jl7 3 in. (190.50 cm); Pain 10/10; 10:44 BP 98 / 84; Pulse 91; Resp 16 S; Pulse Ox 99% on R/A; ca1 09:43 Body Mass Index 28.50 (103.42 kg, 190.50 cm) jl7 ED Course: 09:36 Patient arrived in ED. am2 09:45 Triage completed. jl7 09:45 Rylee Valencia FNP-C [facility]. kb 09:45 Bill Mujica MD is Attending Physician. kb 09:46 Arm band placed on right wrist. jl7 09:48 Patient has correct armband on for positive identification. Bed in low position. Call [facility] light in reach. Side rails up X2. Pulse ox on. NIBP on. 09:50 Deanna Vasquez, JOB is Primary Nurse. ca1 10:14 Ankle Left 3 View XRAY In Process Unspecified. EDMS 10:14 Foot Left 2 View XRAY In Process Unspecified. EDMS 10:43 No provider procedures requiring assistance completed. Patient did not have IV access ca1 during this emergency room visit. Ortho shoe applied to left foot. boot. Administered Medications: 10:48 Drug: Ibuprofen 800 mg Route: PO; ca1 10:48 Follow up: Response: Medication administered at discharge. ca1 Outcome: 10:36 Discharge ordered by . kb 10:48 Discharged to home via wheelchair, with family. ca1 10:48 Condition: stable 10:48 Discharge instructions given to patient, Instructed on discharge instructions, follow up and referral plans. Demonstrated understanding of instructions, follow-up care. 10:48 Patient left the ED. ca1 Signatures: Dispatcher [employer] EDRylee Escobar, SAVI-Reji HOU-Shane Patiño RN RN jl7 Barbra Baldwin Cheryl RN RN ca1
--- NOTE | 2020-09-11 10:36 | EDPHYS ---
Physician Documentation [facility] Name: Gurpreet Tristan Age: 60 yrs Sex: Male : 1960 Arrival Date: 09/11/2020 Time: 09:36 Bed 25 Private MD: ED Physician Bill Mujica HPI: 09/11 09:50 This 60 yrs old Black Male presents to ER via EMS with complaints of ankle pain. kb 09:50 The patient presents with decreased range of motion, an injury, pain, swelling, kb tenderness. The complaints affect the right ankle. Onset: The symptoms/episode began/occurred 11 day(s) ago. Context: The problem was sustained outdoors, resulted from twisted ankle , The patient can partially bear weight on the affected extremity. can ambulate using crutches. Associated signs and symptoms: Pertinent positives: swelling, Pertinent negatives: calf tenderness, fever, nausea, numbness, rash, tingling, vomiting, warmth, weakness. Modifying factors: The symptoms are alleviated by nothing, the symptoms are aggravated by weight bearing, movement. Severity of symptoms: At their worst the symptoms were moderate, in the emergency department the symptoms are unchanged. The patient has not experienced similar symptoms in the past. The patient has been recently seen by a physician: the ER physician, out of Town, 10 day(s) ago, with similar presenting complaints, and apparently given a diagnosis of ankle sprain, X-rays were performed. Pt reports he was weedeating around his mother's grave and twisted his ankle on August 31, 2020. States he went to the [facility] ER and had x-rays done that were negative. They sent him home with crutches. States he is still having a lot of pain and it is still swollen so he wanted to get it looked at again.. Historical: - Allergies: 09:46 No Known Allergies; jl7 - Home Meds: 09:46 aspirin 81 mg Oral TbEC 1 tab once daily [Active]; carvedilol oral oral [Active]; jl7 lisinopril Oral [Active]; Metoprolol Tartrate Oral [Active]; 09:51 furosemide 40 mg Oral tab 1 tab once daily [Active]; ca1 - PMHx: 09:46 Atrial Fib; High Cholesterol; jl7 - Immunization history:: Adult Immunizations up to date. - Social history:: Smoking status: Patient denies any tobacco usage or history of. ROS: 09:48 Constitutional: Negative for fever, chills, and weight loss, Skin: Negative for injury, kb rash, and discoloration, Neuro: Negative for headache, weakness, numbness, tingling, and seizure. 09:48 MS/extremity: Positive for injury or acute deformity, decreased range of motion, pain, swelling, tenderness, of the left ankle. Exam: 09:48 Constitutional: This is a well developed, well nourished patient who is awake, alert, kb and in no acute distress. Head/Face: Normocephalic, atraumatic. Respiratory: Respirations even and unlabored. No increased work of breathing, no retractions or nasal flaring. Skin: Warm, dry with normal turgor. Normal color. Neuro: Awake and alert, GCS 15, oriented to person, place, time, and situation. Moves all extremities. Normal gait. 09:48 Musculoskeletal/extremity: Extremities: grossly normal except: noted in the dorsum of left foot and left ankle: decreased ROM, pain, swelling, tenderness, ROM: limited active range of motion due to pain, in the left ankle, Circulation is intact in all extremities. Sensation intact. Vital Signs: 09:43 BP 94 / 69; Pulse 83; Resp 15; Temp 97.1; Pulse Ox 98% ; Weight 103.42 kg; Height 6 ft. jl7 3 in. (190.50 cm); Pain 10/10; 10:44 BP 98 / 84; Pulse 91; Resp 16 S; Pulse Ox 99% on R/A; ca1 09:43 Body Mass Index 28.50 (103.42 kg, 190.50 cm) jl7 MDM: 09:45 Patient medically screened. kb 09:48 Data reviewed: vital signs, nurses notes. Data interpreted: Pulse oximetry: on room air kb is 98 %. Interpretation: normal. 10:34 Counseling: I had a detailed discussion with the patient and/or guardian regarding: the kb historical points, exam findings, and any diagnostic results supporting the discharge/admit diagnosis, radiology results, the need for outpatient follow up, a orthopedic surgeon, to return to the emergency department if symptoms worsen or persist or if there are any questions or concerns that arise at home. 10:36 ED course: Pt was prescribed baclofen and tramadol for pain. Educated to continue those kb as needed. Pt has follow up appt with Dr Rajput on Thursday. 09/11 09:48 Order name: Ankle Left 3 View XRAY; Complete Time: 10:29 kb 09/11 09:48 Order name: Foot Left 2 View XRAY; Complete Time: 10:29 kb 09/11 10:35 Order name: Post-op shoe: boot; Complete Time: 10:43 kb Administered Medications: 10:48 Drug: Ibuprofen 800 mg Route: PO; ca1 10:48 Follow up: Response: Medication administered at discharge. ca1 Disposition: 16:04 Co-signature as Attending Physician, Bill Mujica MD I agree with the assessment and kdr plan of care. Disposition: 09/11/20 10:36 Discharged to Home. Impression: Sprain of ankle, Avulsion fracture medial malleolus- left ankle. - Condition is Stable. - Discharge Instructions: Ankle Sprain, [id number], Ankle Fracture, [id number]. - Medication Reconciliation Form, Thank You Letter, Antibiotic Education, Prescription Opioid Use form. - Follow up: Emergency Department; When: As needed; Reason: Worsening of condition. Follow up: Private Physician; When: 2 - 3 days; Reason: Recheck today's complaints, Continuance of care, Re-evaluation by your physician. Signatures: Dispatcher [employer] EDMS Rylee Valencia, DELIVERER FOOD-C DELIVERER FOOD-Bill Daniels MD MD kdr Shane Rodgers RN RN jl7 Deanna Vasquez RN RN ca1 Corrections: (The following items were deleted from the chart) 10:34 10:30 Splint - Ankle: Aircast ordered. kb kb 10:48 10:36 09/11/2020 10:36 Discharged to Home. Impression: Sprain of ankle; Avulsion ca1 fracture medial malleolus- left ankle. Condition is Stable. Forms are Medication Reconciliation Form, Thank You Letter, Antibiotic Education, Prescription Opioid Use. Follow up: Emergency Department; When: As needed; Reason: Worsening of condition. Follow up: Private Physician; When: 2 - 3 days; Reason: Recheck today's complaints, Continuance of care, Re-evaluation by your physician. kb
[2020-09-11 10:55] VITALS: TEMP 97.1
[2020-09-11 10:56] VITALS: BP 98/84; O2SAT 99
[2020-09-11] MEDS ORDERED: IBUPROFEN 400 MG TAB ONE (11:04)
== END 2020-09-11 10:48 | disposition home or self-care (01) ==
LOC: ER 09:31
DX: S82.842A Displaced bimalleolar fracture of left lower leg, initial encounter for closed fracture (principal); S93.402A Sprain of unspecified ligament of left ankle, initial encounter; I48.91 Unspecified atrial fibrillation; E78.00 Pure hypercholesterolemia, unspecified; X50.0XXA Overexertion from strenuous movement or load, initial encounter
CPT/HCPCS: 99284